=== PATIENT | female | born 1960 | race African-American/Black ===

== ENCOUNTER 2022-03-18 11:24 | Emergency (ER) | payer OTHER ==
--- NOTE | 2022-03-18 12:12 | EDPHYS ---
Physician Documentation [facility] Name: Deepali Gonzales Age: 61 yrs Sex: Female : 1960 Arrival Date: 03/18/2022 Time: 11:29 Bed 10 Private MD: ED Physician Nigel Hubbard HPI: 03/18 12:05 This 61 yrs old Black Female presents to ER via Ambulatory with complaints of Skin aj3 Sore(s). 12:05 This 61 yrs old Black Female presents to ER via Ambulatory with complaints of Skin aj3 Sore(s) and bumps. Historical: - Allergies: 11:54 Aspirin; iw - PMHx: 11:55 Hypertensive disorder; iw - Social history:: Smoking status: Patient denies any tobacco usage or history of. ROS: 12:05 Constitutional: Negative for fever, chills, and weight loss, Cardiovascular: Negative aj3 for chest pain, palpitations, and edema, Respiratory: Negative for shortness of breath, cough, wheezing, and pleuritic chest pain, Abdomen/GI: Negative for abdominal pain, nausea, vomiting, diarrhea, and constipation, Neuro: Negative for syncope, headache, weakness, numbness, tingling, and seizure. 12:05 Skin: Positive for abscess, rash. Exam: 12:05 Constitutional: This is a well developed, well nourished patient who is awake, alert, aj3 and in no acute distress. Head/Face: Normocephalic, atraumatic. Neck: Trachea midline, no thyromegaly or masses palpated, and no cervical lymphadenopathy. Supple, full range of motion without nuchal rigidity, or vertebral point tenderness. No Meningismus. Cardiovascular: Regular rate and rhythm with a normal S1 and S2. No gallops, murmurs, or rubs. Normal PMI, no JVD. No pulse deficits. Respiratory: Lungs have equal breath sounds bilaterally, clear to auscultation and percussion. No rales, rhonchi or wheezes noted. No increased work of breathing, no retractions or nasal flaring. Neuro: Awake and alert, GCS 15, oriented to person, place, time, and situation. Cranial nerves II-XII grossly intact. Motor strength 5/5 in all extremities. Sensory grossly intact. Cerebellar exam normal. Normal gait. 12:05 Skin: small indurated papular lesions to L axilla with erythema and tenderness. Small pustular lesion to lower abdomen without tenderness or induration. Dark colored dry rash under abdomen.. Vital Signs: 11:52 BP 188 / 97; Pulse 92; Resp 16; Temp 98.3; Pulse Ox 97% on R/A; iw MDM: 11:56 Patient medically screened. aj3 12:46 Data reviewed: vital signs, nurses notes. 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 ED course: No I\T\D warranted at 4 small abscess to left axilla. We will start with supportive measures and antibiotic management. Patient to follow-up with PCP and cable technician.. Administered Medications: No medications were administered Disposition: 22:00 Co-signature as Attending Physician, Nigel BUSH was immediately available on-site ms3 in the Emergency Department for consultation in the care of the patient. . Disposition Summary: 03/18/22 12:11 Discharge Ordered Location: Home aj3 Problem: new aj3 Symptoms: are unchanged aj3 Condition: Stable aj3 Diagnosis - Cutaneous abscess of left axilla aj3 - Rash and other nonspecific skin eruption aj3 Followup: aj3 - With: Private Physician - When: - Reason: Re-evaluation by your physician Followup: aj3 - With: Rajendra Amato MD - When: - Reason: Recheck today's complaints Discharge Instructions: - Discharge Summary Sheet aj3 - Skin Abscess aj3 - Heat Rash, Adult aj3 Forms: - Medication Reconciliation Form aj3 - Thank You Letter aj3 - Antibiotic Education aj3 - Prescription Opioid Use aj3 Prescriptions: - Nystatin-Triamcinolone 100,000-0.1 unit/g-% Topical Cream - apply 1 application by TOPICAL route 2 times per day; 1 tube; Refills: 0, aj3 Product Selection Permitted - cephalexin 500 mg Oral capsule - take 1 capsule by ORAL route 4 times per day; 28 capsule; Refills: 0, Product aj3 Selection Permitted - Bactrim DS 800-160 mg Oral Tablet - take 1 tablet by ORAL route every 12 hours for 7 days; 14 tablet; Refills: 0, aj3 Product Selection Permitted Signatures: Usha Hendrickson, RN RN iw Nigel Hubbard, DO ms3 Sujatha Gann RN RN ld1 Maria Bailey, POLISH COMPOUNDER POLISH COMPOUNDER aj3
--- NOTE | 2022-03-18 12:12 | ER ---
Nurse's Notes [facility] Name: Deepali Gonzales Age: 61 yrs Sex: Female : 1960 Arrival Date: 03/18/2022 Time: 11:29 Bed 10 Private MD: Diagnosis: Cutaneous abscess of left axilla;Rash and other nonspecific skin eruption Presentation: 03/18 11:52 Chief complaint: Patient states: has bumps under her left underarm, gotten worse over iw past couple days, also has some bumps under her belly and it itches and it's irritated. Coronavirus screen: At this time, the client does not indicate any symptoms associated with coronavirus-19. Ebola Screen: Patient negative for fever greater than or equal to 101.5 degrees Fahrenheit, and additional compatible Ebola Virus Disease symptoms Patient denies exposure to infectious person. Patient denies travel to an Ebola-affected area in the 21 days before illness onset. No symptoms or risks identified at this time. Initial Sepsis Screen: Does the patient meet any 2 criteria? No. Patient's initial sepsis screen is negative. Does the patient have a suspected source of infection? No. Patient's initial sepsis screen is negative. Risk Assessment: Do you want to hurt yourself or someone else? Patient reports no desire to harm self or others. Onset of symptoms. 11:52 Method Of Arrival: Ambulatory iw 11:52 Acuity: PAUL 4 iw Historical: - Allergies: 11:54 Aspirin; iw - PMHx: 11:55 Hypertensive disorder; iw - Social history:: Smoking status: Patient denies any tobacco usage or history of. Screenin:21 Abuse screen: Denies threats or abuse. Denies injuries from another. Nutritional iw screening: No deficits noted. Tuberculosis screening: No symptoms or risk factors identified. Fall Risk None identified. Assessment: 12:20 General: Appears in no apparent distress. Behavior is calm, cooperative. Pain: iw Complains of pain in left axilla. Neuro: Level of Consciousness is awake, alert, obeys commands, Oriented to person, place, time, situation, Moves all extremities. Full function. Respiratory: Respiratory effort is even, unlabored, Respiratory pattern is regular. Derm: Abscess located on suprapubic area is dime sized. Derm: Abscess located on left axilla. Musculoskeletal: Range of motion: intact in all extremities. Vital Signs: 11:52 BP 188 / 97; Pulse 92; Resp 16; Temp 98.3; Pulse Ox 97% on R/A; iw ED Course: 11:29 Patient arrived in ED. as 11:54 Maria Bailey NP is PHCP. aj3 11:54 Nigel Hubbard DO is Attending Physician. aj3 11:54 Triage completed. iw 11:55 Arm band placed on. iw 12:15 Rajendra Amato MD is Referral Physician. aj3 12:20 Usha Hendrickson, RN is Primary Nurse. iw 12:21 No provider procedures requiring assistance completed. Patient did not have IV access iw during this emergency room visit. 12:23 Patient has correct armband on for positive identification. Bed in low position. Call ld1 light in reach. Side rails up X2. Pulse ox on. NIBP on. Door closed. Noise minimized. Warm blanket given. Administered Medications: No medications were administered Medication: 12:21 VIS not applicable for this client. iw Outcome: 12:11 Discharge ordered by . aj3 12:22 Discharged to home ambulatory. ld1 12:22 Condition: stable 12:22 Discharge instructions given to patient, Instructed on discharge instructions, follow up and referral plans. medication usage, Demonstrated understanding of instructions, follow-up care, medications, Prescriptions given X 3. 12:23 Patient left the ED. ld1 Signatures: Poonam Paulino as Usha Hendrickson, RN MAKEDA iw Sujatha Gann RN RN ld1 Maria Bailey NP TERRITORY SALES MANAGER aj3
[2022-03-18 12:28] VITALS: BP 188/97; TEMP 98.3; O2SAT 97
== END 2022-03-18 12:23 | disposition home or self-care (01) ==
LOC: ER 11:24
DX: L02.412 Cutaneous abscess of left axilla (principal); R21 Rash and other nonspecific skin eruption; I10 Essential (primary) hypertension; Z88.6 Allergy status to analgesic agent
CPT/HCPCS: 99283

== ENCOUNTER 2022-05-31 23:17 | Emergency (ER) | payer OTHER ==
[2022-06-01] MEDS ORDERED: LIDOCAINE 1% W/EPI 1:100,000 MDV 50 ML VIAL ONE (00:13)
--- NOTE | 2022-06-01 00:34 | EDPHYS ---
Physician Documentation [facility] Name: Deepali Gonzales Age: 61 yrs Sex: Female : 1960 Arrival Date: 05/31/2022 Time: 23:18 Bed 13 Private MD: ED Physician Nigel Hubbard HPI: 06/01 00:34 This 61 yrs old Black Female presents to ER via Ambulatory with complaints of High ms3 Blood Pressure, Insect Bite. 00:34 The patient presents with an abscess of the right leg, The patient presents with ms3 cellulitis of the right leg. Description: erythematous, hot, warm. Onset: The symptoms/episode began/occurred acutely, 2 day(s) ago. Possible cause(s): unknown. Associated signs and symptoms: Pertinent positives: erythema, Pertinent negatives: discharge, drainage, vomiting. Modifying factors: the symptoms are alleviated by nothing, the symptoms are aggravated by nothing. Severity of symptoms: At their worst the symptoms were moderate, in the emergency department the symptoms are unchanged. Historical: - Allergies: 05/31 23:26 Aspirin; aa9 - PMHx: 23:26 Hypertensive disorder; aa9 - Immunization history:: Client reports receiving the 2nd dose of the Covid vaccine. - Social history:: Smoking status: Patient reports the use of cigarette tobacco products, smokes one-half pack cigarettes per day. ROS: 06/01 00:34 Constitutional: Negative for fever, and chills. Eyes: Negative for injury, pain, ms3 redness, and discharge, Neck: Negative for injury, pain, and swelling. Cardiovascular: Negative for chest pain, and palpitations. Respiratory: Negative for shortness of breath, cough, wheezing, and pleuritic chest pain, Abdomen/GI: Negative for abdominal pain, nausea, vomiting, diarrhea, and constipation, Neuro: Negative for headache, weakness, numbness, tingling. Skin: Positive for erythema. 00:34 All other systems are negative. ms3 Exam: 00:34 Constitutional: This is a well developed, well nourished patient who is awake, alert, ms3 and in no acute distress. Head/Face: Normocephalic, atraumatic. Neck: Trachea midline, no cervical lymphadenopathy. Supple, full range of motion without nuchal rigidity, or vertebral point tenderness. No Meningismus. Chest/axilla: Normal chest wall appearance and motion. Nontender with no deformity. Cardiovascular: Regular rate and rhythm with a normal S1 and S2. No gallops, murmurs, or rubs. Normal PMI, no JVD. No pulse deficits. Respiratory: Lungs have equal breath sounds bilaterally, clear to auscultation and percussion. No rales, rhonchi or wheezes noted. No increased work of breathing, no retractions or nasal flaring. Abdomen/GI: Soft, non-tender, with normal bowel sounds. No distension or tympany. No guarding or rebound. No evidence of tenderness throughout. 00:34 MS/ Extremity: Pulses equal, no cyanosis. Neurovascular intact. Full, normal range of motion. Psych: Awake, alert, with orientation to person, place and time. Behavior, mood, and affect are within normal limits. 00:34 Skin: abscess, that is small, of the right leg, with fluctuance, with surrounding cellulitis, cellulitis, that is mild, on the right leg, induration, that is mild is noted, located on the right leg. Vital Signs: 05/31 23:29 BP 146 / 92; Pulse 85; Resp 16 S; Temp 97.8(O); Pulse Ox 98% on R/A; aa9 06/01 00:48 BP 151 / 81; Pulse 80; Resp 18 S; Pulse Ox 99% on R/A; as6 Procedures: 00:34 I \T\ D: Incision and drainage was performed for an abscess of the right right leg ms3 Prepped with alcohol, Anesthetized with 4 ml's 1% Lidocaine w/ Epi. Incised with #11 blade. Drained small amount purulent fluid. serosanguinous fluid. Dressing: sterile 4x4 gauze, the patient tolerated the procedure well. MDM: 00:03 Patient medically screened. ms3 00:34 Differential diagnosis: abscess, cellulitis, insect bite. Data reviewed: vital signs, ms3 nurses notes, and as a result, I will discharge patient. Counseling: I had a detailed discussion with the patient and/or guardian regarding: the historical points, exam findings, and any diagnostic results supporting the discharge/admit diagnosis, the need for outpatient follow up, to return to the emergency department if symptoms worsen or persist or if there are any questions or concerns that arise at home. Special discussion: I discussed with the patient/guardian in detail that at this point there is no indication for admission to the hospital. It is understood, however, that if the symptoms persist or worsen the patient needs to return immediately for re-evaluation. 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 Exp: as6 02/22/2024. Lot #: [id number]. } Route: IM; Site: right deltoid; 00:49 Follow up: Response: (VIS) Vaccine information sheet provided today. Questions and/or as6 concerns addressed. VIS edition date: May 24, 2021.; No adverse reaction Disposition Summary: 06/01/22 00:34 Discharge Ordered Location: Home ms3 Condition: Stable ms3 Diagnosis - Cellulitis of right lower limb ms3 Followup: ms3 - With: Denis Rhodes DO - When: 2 - 3 days - Reason: Recheck today's complaints Discharge Instructions: - Discharge Summary Sheet ms3 - Cellulitis, Adult ms3 Forms: - Medication Reconciliation Form ms3 - Thank You Letter ms3 - Antibiotic Education ms3 - Prescription Opioid Use ms3 Prescriptions: - Doxycycline Hyclate 100 mg Oral Tablet - take 1 tablet by ORAL route every 12 hours; 20 tablet; Refills: 0, Product ms3 Selection Permitted Signatures: Nigel Hubbard DO DO ms3 Evangelista Jackson, RN RN as6 Arabella Ramirez RN RN aa9
--- NOTE | 2022-06-01 00:34 | ER ---
Nurse's Notes [facility] Name: Deepali Gonzales Age: 61 yrs Sex: Female : 1960 Arrival Date: 05/31/2022 Time: 23:18 Bed 13 Private MD: Diagnosis: Cellulitis of right lower limb Presentation: 05/31 23:22 Chief complaint: Patient states: spider bite on my right leg. Coronavirus screen: aa9 Vaccine status: Patient reports receiving the 2nd dose of the covid vaccine. Ebola Screen: No symptoms or risks identified at this time. Risk Assessment: Do you want to hurt yourself or someone else? Patient reports no desire to harm self or others. Onset of symptoms was May 30, 2022. 23:22 Method Of Arrival: Ambulatory aa9 23:22 Acuity: PAUL 4 aa9 23:29 Initial Sepsis Screen: Does the patient meet any 2 criteria? No. Patient's initial aa9 sepsis screen is negative. Does the patient have a suspected source of infection? No. Patient's initial sepsis screen is negative. Triage Assessment: 23:27 Bite description: bite sustained to medial aspect of right knee by a spider, animal aa9 information: Appearance: appeared sick, is superficial, vaccination(s) is not applicable. General: Appears distressed, uncomfortable, Behavior is cooperative. Pain: Complains of pain in medial aspect of right knee. Historical: - Allergies: 23:26 Aspirin; aa9 - PMHx: 23:26 Hypertensive disorder; aa9 - Immunization history:: Client reports receiving the 2nd dose of the Covid vaccine. - Social history:: Smoking status: Patient reports the use of cigarette tobacco products, smokes one-half pack cigarettes per day. Screenin/14 00:46 Abuse screen: Denies threats or abuse. Denies injuries from another. Nutritional as6 screening: No deficits noted. Tuberculosis screening: No symptoms or risk factors identified. Fall Risk None identified. Assessment: 00:48 General: see triage assessment . as6 Vital Signs: 05/31 23:29 BP 146 / 92; Pulse 85; Resp 16 S; Temp 97.8(O); Pulse Ox 98% on R/A; aa9 06/01 00:48 BP 151 / 81; Pulse 80; Resp 18 S; Pulse Ox 99% on R/A; as6 ED Course: 05/31 23:18 Patient arrived in ED. ja2 23:26 Triage completed. aa9 23:27 Arm band placed on. aa9 23:37 Nigel Hubbard DO is Attending Physician. ms3 06/01 00:03 Evangelista Jackson, RN is Primary Nurse. as6 00:34 Denis Rhodes DO is Referral Physician. ms3 00:47 Bed in low position. Call light in reach. Side rails up X 1. as6 00:47 No provider procedures requiring assistance completed. Patient did not have IV access as6 during this emergency room visit. 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 Exp: as6 02/22/2024. Lot #: [id number]. } Route: IM; Site: right deltoid; 00:49 Follow up: Response: (VIS) Vaccine information sheet provided today. Questions and/or as6 concerns addressed. VIS edition date: May 24, 2021.; No adverse reaction Medication: 00:46 Vaccine Information Statement (VIS) provided today. Questions and/or concerns as6 addressed. VIS edition date: May 24, 2021. Outcome: 00:34 Discharge ordered by . ms3 00:47 Discharged to home ambulatory, with family. as6 00:47 Condition: stable 00:47 Discharge instructions given to patient, family, Instructed on discharge instructions, follow up and referral plans. medication usage, wound care, Demonstrated understanding of instructions, follow-up care, medications, wound care, Prescriptions given X 1. 00:49 Patient left the ED. as6 Signatures: Nigel Hubbard DO DO ms3 Nadja Mitchell ahsan Evangelista Jackson, RN RN as6 Arabella Ramirez RN RN aa9
[2022-06-01] MEDS ORDERED: DOXYCYCLINE 100 MG CAP PO ONE (00:48)
[2022-06-01] MEDS ORDERED: TETANUS & DIPHTHERIA TOX,ADULT 0.5 ML VIAL ONE (00:49)
[2022-06-01 00:53] VITALS: TEMP 97.8
[2022-06-01 00:57] VITALS: BP 151/81; O2SAT 99
== END 2022-06-01 00:49 | disposition home or self-care (01) ==
LOC: ER 23:17
PROC: 0H9KXZZ Drainage of Right Lower Leg Skin, External Approach (ICD-10-PCS; principal; 2022-06-01)
DX: L03.115 Cellulitis of right lower limb (principal); I10 Essential (primary) hypertension; F17.210 Nicotine dependence, cigarettes, uncomplicated; Z23 Encounter for immunization; Z88.6 Allergy status to analgesic agent
CPT/HCPCS: 90471; 90714; 99283

== ENCOUNTER 2022-11-19 12:36 | Inpatient (IN) | payer OTHER ==
[2022-11-19] MEDS ORDERED: dexAMETHasone 10 MG/ML VIAL ONE (12:57)
[2022-11-19] MEDS ORDERED: IPRATROPIUM BROM 0.5MG/2.5ML ONE ×2 (12:58→20:03)
[2022-11-19] MEDS ORDERED: ALBUTEROL 2.5 MG/3 ML NEB SOL ONE ×3 (12:58→20:03)
--- NOTE | 2022-11-19 13:34 | RAD REPORT ---
EXAM DESCRIPTION: Cecile Pa And Lat (2 Views)11/19/2022 1:23 pm CLINICAL HISTORY: Cough COMPARISON: None FINDINGS: A few areas of subsegmental atelectasis are present within the lungs bilaterally. The upper lobes are clear. Mild cardiomegaly
[2022-11-19 14:11] LABS: SARS-COV-2 RT PCR NEGATIVE (NEGATIVE)
[2022-11-19 14:44] LABS: Absolute Lymphocytes (CBC) 2.1 K/uL (0.7-4.9); Hematocrit 43.9 % (36.0-45.0); Lymphocytes % 24.9 % (15.3-44.8); MCV 91.1 fL (80-100); MPV 9.7 fL (7.6-11.3); RBC Red Blood Cell Count 4.82 M/uL (3.86-4.86)
[2022-11-19 14:58] LABS: Magnesium 2.2 mg/dL (1.6-2.4); Potassium 3.3 mmol/L (3.5-5.1); Troponin High Sensitivity 19.4 pg/mL (<58.9)
[2022-11-19] MEDS ORDERED: MAGNESIUM SULFATE 1 gm IVPB 1 GM/100 ML BAG IV ONE (15:04)
--- NOTE | 2022-11-19 15:48 | RAD REPORT ---
EXAM DESCRIPTION: CT - Chest For Pe Angio - 11/19/2022 3:28 pm CLINICAL HISTORY: sob COMPARISON: None. TECHNIQUE: Dynamically enhanced axial 3 mm thick images of the chest were obtained during administra tion of 100 mL Isovue 370 IV contrast. Coronal and oblique reconstruction images were generated and r eviewed. Exam utilizes a protocol for optimal evaluation of pulmonary arterial tree. Maximum intensity projections 3D imaging was utilized All CT scans are performed using dose optimization technique as appropriate and may include automated exposure control or mA/KV adjustment according to patient size. FINDINGS: Poor opacification of the pulmonary arteries. Evaluation for a pulmonary embolus is nondia gnostic A thoracic aortic aneurysm is not noted. A pleural effusion is not seen. A pericardial effusion is not seen. Mild to moderate predominantly tree-in-bud opacities scattered within the left lung. A 1.6 centimeter lymph node AP window IMPRESSION: Poor opacification of the pulmonary arteries. Evaluation for a pulmonary embolus is nond iagnostic Mild to moderate predominantly tree-in-bud opacities scattered within the left lung probably an atypi nanette pneumonia 1.6 centimeter lymph node AP window. Followup CT chest with contrast in 3 months recommended to asses s stability
--- NOTE | 2022-11-19 16:05 | ER ---
Nurse's Notes [facility] Name: Deeapli Gonzales Age: 62 yrs Sex: Female : 1960 Arrival Date: 11/19/2022 Time: 12:38 Bed 14 Private MD: Diagnosis: Pneumonia, unspecified organism;Dyspnea Presentation: 11/19 12:40 Chief complaint: Patient states: Cough, wheezing, body aches, BA x 2 days. + fever at ll1 home. Coronavirus screen: Client denies travel out of the [place] in the last 14 days. congestion, cough unrelated to allergies, difficulty breathing, fatigue, fever, headache, Client presents with at least one sign or symptom that may indicate coronavirus-19. Standard/surgical mask placed on the client. Ebola Screen: Patient denies travel to an Ebola-affected area in the 21 days before illness onset. Initial Sepsis Screen: Does the patient meet any 2 criteria? No. Patient's initial sepsis screen is negative. Does the patient have a suspected source of infection? Yes: Productive cough/pneumonia. Risk Assessment: Do you want to hurt yourself or someone else? Patient reports no desire to harm self or others. Onset of symptoms was November 18, 2022. 12:40 Method Of Arrival: Ambulatory 1 12:40 Acuity: PAUL 3 ll1 Triage Assessment: 12:41 General: Appears uncomfortable, ill, Behavior is calm, cooperative, appropriate for ll1 age. Neuro: Reports weakness. Respiratory: Reports shortness of breath cough that is. Musculoskeletal: Reports pain in body aches. 14:56 General: Appears in no apparent distress. uncomfortable, obese, well groomed, well jh5 developed, Behavior is calm, cooperative, appropriate for age. Respiratory: Reports shortness of breath cough that is labored breathing. 14:57 Respiratory: Onset: The symptoms/episode began/occurred gradually, the patient has mild jh5 shortness of breath. Historical: - Allergies: 12:40 Aspirin; ll1 - PMHx: 12:40 Hypertensive disorder; ll1 - Immunization history:: Client reports receiving the 2nd dose of the Covid vaccine. - Social history:: Smoking status: Patient denies any tobacco usage or history of. Screenin:55 Abuse screen: Denies threats or abuse. Denies injuries from another. Nutritional jh5 screening: No deficits noted. Tuberculosis screening: No symptoms or risk factors identified. 14:55 [facility] ED Fall Risk Assessment (Adult) History of falling in the last 3 months, [facility] including since admission No falls in past 3 months (0 pts) Confusion or Disorientation No (0 pts) Intoxicated or Sedated No (0 pts) Impaired Gait No (0 pts) Mobility Assist Device Used No (0 pt) Altered Elimination No (0 pt) Score/Fall Risk Level 0 - 2 = Low Risk. Assessment: 14:01 Reassessment:. [facility] 14:02 Reassessment: Pt son came out letting the policy writer sales know pt was having harder time [facility] breathing again. The policy writer sales states to the visitor "Okay, let me asses her right now, we had given her a breathing treatment that seemed to help but maybe she needs another one" and the policy writer sales proceeds to get up immediately and walk into the room to see the patient. The policy writer sales then informs the pt she may need another breathing treatment and that the policy writer sales will get the provider at this time. 14:55 Pain: Denies pain. Cardiovascular: Rhythm is sinus tachycardia. Respiratory: Airway is [facility] patent Respiratory effort is even, unlabored, Breath sounds with wheezes bilaterally. 20:27 Reassessment: spoke with AMIE GREEN about BP and he advises to not give hydralazine at [facility] this time due to BP coming down. Vital Signs: 12:40 BP 189 / 107; Pulse 94; Resp 20; Temp 98.9; Pulse Ox 95% ; Weight 127.01 kg; Height 5 ll1 ft. 6 in. (167.64 cm); Pain 8/10; 13:26 BP 156 / 70; Pulse 92; Resp 22; Pulse Ox 94% ; jh5 14:46 Pulse 103; Resp 22; Pulse Ox 98% on R/A; 5 16:04 BP 174 / 77; Pulse 102; Resp 20; Pulse Ox 98% ; jh5 19:42 BP 190 / 96; Pulse 94; Resp 22; Pulse Ox 95% on R/A; jh5 20:23 BP 162 / 74; Pulse 98; Resp 22; Pulse Ox 96% ; jh5 12:40 Body Mass Index 45.19 (127.01 kg, 167.64 cm) ll1 ED Course: 12:38 Patient arrived in ED. rg4 12:39 Lu[facility] Ren[facility]C [facility] kb 12:39 Sergey Gold MD is Attending Physician. kb 12:43 Triage completed. ll1 12:43 Arm band placed on Patient placed in an exam room, on a stretcher. ll1 13:25 Chest Pa And Lat (2 Views) XRAY In Process Unspecified. EDMS 13:26 COVID-19/FLU A+B/RSV Sent. jh5 14:55 Patient has correct armband on for positive identification. Bed in low position. Call [facility] light in reach. Side rails up X 1. 14:55 No provider procedures requiring assistance completed. jh5 15:30 CT Chest For PE Angio In Process Unspecified. EDMS 16:05 Rajendra Rios MD is Hospitalizing Provider. kb Administered Medications: 13:00 Drug: Albuterol 2.5 mg Route: Inhalation; 5 13:00 Drug: AtroVENT (ipratropium) Aerosol 0.5 mg Route: Inhalation; 5 13:00 Drug: Decadron (dexamethasone) 10 mg Route: IM; Site: right deltoid; jh5 14:08 Drug: Albuterol 2.5 mg Route: Inhalation; jh5 15:06 Drug: Magnesium Sulfate 1 grams Route: IVPB; Infused Over: 1 hrs; Site: right [facility] antecubital; 17:00 Drug: Rocephin (cefTRIAXone) 1 grams Route: IV; Rate: calculated rate; Site: right [facility] antecubital; 17:04 Follow up: IV Status: Completed infusion [facility] 17:09 Drug: Zithromax (azithromycin) 500 mg Route: IVPB; Infused Over: 1 hrs; Site: right [facility] antecubital; 18:48 Follow up: IV Status: Completed infusion 5 20:29 Not Given (Physician Discretion): hydrALAZINE 10 mg IVP once [facility] Medication: 14:55 VIS not applicable for this client. 5 Outcome: 16:05 Decision to Hospitalize by Provider. kb 20:46 Patient left the ED. 5 Signatures: Dispatcher [employer] EDMS Luz Reno FNP-C SHANK THREADER-Evelyn Finnegan rg4 Arlene Maynard RN RN 1 Nadja Romo RN RN 5 Corrections: (The following items were deleted from the chart) 12:44 12:40 Pulse 94bpm; Resp 20bpm; Pulse Ox 95%; Temp 98.9F; 127.01 kg; Height 5 ft. 6 in.; ll1 BMI: 45.1; Pain 8/10; ll1
--- NOTE | 2022-11-19 16:05 | EDPHYS ---
Physician Documentation [facility] Name: Deepali Gonzales Age: 62 yrs Sex: Female : 1960 Arrival Date: 11/19/2022 Time: 12:38 Bed 14 Private MD: ED Physician Sergey Gold HPI: 11/19 12:45 This 62 yrs old Black Female presents to ER via Ambulatory with complaints of Breathing kb Difficulty, Body Aches. 12:45 Patient is 62-year-old female with a history of hypertension that presents for cough, kb congestion, wheezing, fever, body aches, headache that started 2 days ago. States nothing has made the symptoms better or worse. Has tried albuterol inhaler without relief.. Historical: - Allergies: 12:40 Aspirin; ll1 - PMHx: 12:40 Hypertensive disorder; ll1 - Immunization history:: Client reports receiving the 2nd dose of the Covid vaccine. - Social history:: Smoking status: Patient denies any tobacco usage or history of. ROS: 12:45 Abdomen/GI: Negative for abdominal pain, nausea, vomiting, diarrhea, and constipation. kb 12:45 Constitutional: Positive for body aches, chills, fatigue, fever, malaise. 12:45 ENT: Positive for rhinorrhea, sinus congestion. 12:45 Respiratory: Positive for cough. 12:45 Neuro: Positive for headache. 12:45 All other systems are negative. Exam: 12:45 Constitutional: This is a well developed, well nourished patient who is awake, alert, kb and in no acute distress. Head/Face: Normocephalic, atraumatic. ENT: Moist Mucous membranes Cardiovascular: Regular rate and rhythm with a normal S1 and S2. No gallops, murmurs, or rubs. No pulse deficits. Abdomen/GI: Soft, non-tender. No distention Skin: Warm, dry with normal turgor. Normal color. MS/ Extremity: Pulses equal, no cyanosis. Neurovascular intact. Full, normal range of motion. Neuro: Awake and alert, GCS 15, oriented to person, place, time, and situation. Moves all extremities. Normal gait. Psych: Awake, alert, with orientation to person, place and time. Behavior, mood, and affect are within normal limits. 12:45 Respiratory: the patient does not display signs of respiratory distress, Respirations: normal, Breath sounds: wheezing: expiratory that is moderate, is heard diffusely. 15:00 ECG was reviewed by the Attending Physician. Vital Signs: 12:40 BP 189 / 107; Pulse 94; Resp 20; Temp 98.9; Pulse Ox 95% ; Weight 127.01 kg; Height 5 ll1 ft. 6 in. (167.64 cm); Pain 8/10; 13:26 BP 156 / 70; Pulse 92; Resp 22; Pulse Ox 94% ; jh5 14:46 Pulse 103; Resp 22; Pulse Ox 98% on R/A; jh5 16:04 BP 174 / 77; Pulse 102; Resp 20; Pulse Ox 98% ; jh5 19:42 BP 190 / 96; Pulse 94; Resp 22; Pulse Ox 95% on R/A; jh5 20:23 BP 162 / 74; Pulse 98; Resp 22; Pulse Ox 96% ; jh5 12:40 Body Mass Index 45.19 (127.01 kg, 167.64 cm) ll1 MDM: 12:39 Patient medically screened. kb 12:46 Differential diagnosis: Bronchitis pneumonia, COVID, flu, RSV, URI. Data reviewed: vital signs, nurses notes. ED course: Patient is a 62-year-old female with no history of asthma, COPD or other respiratory diseases. Physical exam findings include wheezing bilaterally. Differential diagnosis includes pneumonia, bronchitis, flu, COVID, RSV. Will obtain chest x-ray and test for COVID, flu and RSV. Will give neb treatment and steroid injection and reevaluate.. 16:01 The patient's pulmonary embolism risk score was calculated as follows: the patients kb heart rate is greater than 100 beats per minute (1.5 Pts). Consideration of Admission/Observation Patient was admitted/placed on observation. Management of patient was discussed with the following: Hospitalist: Abhinav accepts pt for admission under Dr Rios. Counseling: I had a detailed discussion with the patient and/or guardian regarding: the historical points, exam findings, and any diagnostic results supporting the discharge/admit diagnosis, lab results, radiology results, the need for further work-up and treatment in the hospital. ED course: . ED course: Wheezing improved after initial treatment but returned returned shortly after. Second treatment given in magnesium IV ordered. Wheezing again decreased but still present. CT was nondiagnostic for PE but shows atypical pneumonia. Will admit for pneumonia and dyspnea. . 11/19 12:44 Order name: COVID-19/FLU A+B/RSV; Complete Time: 14:12 kb 11/19 14:04 Order name: Basic Metabolic Panel; Complete Time: 14:59 kb 11/19 14:04 Order name: CBC with Diff; Complete Time: 14:49 kb 11/19 14:04 Order name: D-Dimer; Complete Time: 14:50 kb 11/19 14:04 Order name: Magnesium; Complete Time: 14:59 kb 11/19 14:04 Order name: NT PRO-BNP; Complete Time: 14:59 kb 11/19 14:04 Order name: Troponin HS; Complete Time: 14:59 kb 11/19 15:58 Order name: Blood Culture Adult (2) kb 11/19 15:58 Order name: Lactate w/ 2H reflex if indic. kb 11/19 18:01 Order name: Hemoglobin A1c EDMS 11/19 18:01 Order name: Lipid Profile EDMS 11/19 18:57 Order name: Protime (+INR) EDMS 11/19 19:10 Order name: Phosphorus EDMS 11/19 19:10 Order name: Creatine Phosphokinase EDMS 11/19 12:44 Order name: Chest Pa And Lat (2 Views) XRAY; Complete Time: 13:37 kb 11/19 14:04 Order name: EKG; Complete Time: 14:05 kb 11/19 14:04 Order name: Cardiac monitoring; Complete Time: 14:26 kb 11/19 14:59 Order name: CT Chest For PE Angio; Complete Time: 15:51 kb 11/19 18:01 Order name: Echo with Doppler EDMS 11/19 19:10 Order name: T4 Free EDMS 11/19 19:10 Order name: Magnesium EDMS 11/19 19:10 Order name: Thyroid Stimulating Hormone EDMS 11/19 14:04 Order name: EKG - Nurse/Tech; Complete Time: 14:59 kb 11/19 14:04 Order name: IV Saline Lock; Complete Time: 14:26 kb 11/19 14:04 Order name: Labs collected and sent; Complete Time: 14:26 kb 11/19 14:04 Order name: O2 Per Protocol; Complete Time: 14:26 kb 11/19 14:04 Order name: O2 Sat Monitoring; Complete Time: 14:26 kb 11/19 16:42 Order name: Labs - recollect needed: recollect lactate, send on ice; Complete Time: 16:55 EC:00 Rate is 102 beats/min. Rhythm is regular. QRS [place] is Normal. SC interval is normal at kb 160 msec. QRS interval is normal at 88 msec. QT interval is normal at 479 msec. Administered Medications: 13:00 Drug: Albuterol 2.5 mg Route: Inhalation; [facility] 13:00 Drug: AtroVENT (ipratropium) Aerosol 0.5 mg Route: Inhalation; [facility] 13:00 Drug: Decadron (dexamethasone) 10 mg Route: IM; Site: right deltoid; [facility] 14:08 Drug: Albuterol 2.5 mg Route: Inhalation; [facility] 15:06 Drug: Magnesium Sulfate 1 grams Route: IVPB; Infused Over: 1 hrs; Site: right [facility] antecubital; 17:00 Drug: Rocephin (cefTRIAXone) 1 grams Route: IV; Rate: calculated rate; Site: right [facility] antecubital; 17:04 Follow up: IV Status: Completed infusion [facility] 17:09 Drug: Zithromax (azithromycin) 500 mg Route: IVPB; Infused Over: 1 hrs; Site: right [facility] antecubital; 18:48 Follow up: IV Status: Completed infusion [facility] 20:29 Not Given (Physician Discretion): hydrALAZINE 10 mg IVP once [facility] Disposition Summary: 11/19/22 16:05 Hospitalization Ordered Hospitalization Status: Observation kb Provider: Rajendra Rios Location: Telemetry/MedSurg (observation) kb Condition: Stable kb Problem: new kb Symptoms: are unchanged kb Bed/Room Type: Standard Room Assignment: 430(11/19/22 18:44) bd Diagnosis - Pneumonia, unspecified organism kb - Dyspnea kb Forms: - Medication Reconciliation Form kb - SBAR form kb Signatures: Dispatcher [employer] EDLuz Thorpe FNP-C FNP-Shefali Washington Lee, FNP-C FNP-Arlene Bear RN RN 1 Nadja Romo RN RN 5 Corrections: (The following items were deleted from the chart) 18:44 16:05 kb bd
[2022-11-19] MEDS ORDERED: CEFTRIAXONE 1000 MG/VIAL ONE (16:12)
[2022-11-19] MEDS ORDERED: NA CHLORIDE 0.9% 250 ML ONE (16:13)
[2022-11-19] MEDS ORDERED: AZITHROMYCIN 500 MG INJ IVPB ONE (16:13)
[2022-11-19] MEDS ORDERED: ACETAMINOPHEN 325 MG TABLET PO PRN (17:57)
[2022-11-19] MEDS ORDERED: ONDANSETRON 4 MG/2 ML VIAL IV PRN (18:02)
--- NOTE | 2022-11-19 18:07 | P.HP ---
Certification for Inpatient Patient admitted to: Inpatient With expected LOS: >2 Midnights Patient will require the following post-hospital care: None Practitioner: I am a practitioner with admitting privileges, knowledge of patient current condition, hospital course, and medical plan of care. Services: Services provided to patient in accordance with Admission requirements found in Title 42 Section 412.3 of the Code of Federal Regulations <Yajaira Hernandez - Last Filed: 11/19/22 19:37> Patient History Date of Service: 11/19/22 Reason for admission: Pneumonia History of Present Illness: Patient is a 62-year-old female with a past medical history significant for hypertension, morbid obesity, nicotine dependence who presents with complaint of wheezing, cough and shortness of breath has been ongoing for the past 3 days. Patient reported associated signs and symptoms of sore throat, generalized body pains, fever, chills, weakness, fatigue, headache, poor appetite and chest tightness. Patient denies any other signs and symptoms. Symptoms are aggravated or relieved by nothing. Patient decided to present to the hospital due to worsening symptoms. - Past Medical/Surgical History -: Hypertension -: Morbid obesity Past Surgical History: Reviewed- Non-Contributory - Family History Family History: Reviewed- Non-Contributory - Social History Smoking Status: Current every day smoker Counseled patient to stop smoking for: less than 10 minutes Smoking therapy provided: Yes Alcohol use: No CD- Drugs: No Caffeine use: Yes Place of Residence: Home <Yajaira Hernandez - Last Filed: 11/19/22 19:37> Date of Service: 11/20/22 <Rajendra Rios - Last Filed: 11/20/22 20:27> Allergies aspirin Allergy (Mild, Verified 11/19/22 19:30) Itching Review of Systems General: Fever, Chills, Weakness, Other (Generalized body pains, fatigue, poor appetite) Eyes: Unremarkable ENT: Throat Pain Respiratory: Cough, Shortness of Breath, Other (Chest tightness.) Cardiovascular: Unremarkable Gastrointestinal: Unremarkable Genitourinary: Unremarkable Musculoskeletal: Unremarkable Neurological: Weakness, Other (Headache) Lymphatics: Unremarkable <Yajaira Hernandez - Last Filed: 11/19/22 19:37> Physical Examination - Physical Exam General: Alert, In no apparent distress, Oriented x3, Cooperative HEENT: Atraumatic, PERRLA, Mucous membr. moist/pink, EOMI, Sclerae nonicteric Neck: Supple, 2+ carotid pulse no bruit, No LAD, Without JVD or thyroid abnormality Respiratory: Diminished Cardiovascular: Regular rate/rhythm, Normal S1 S2 Capillary refill: <2 Seconds Gastrointestinal: Normal bowel sounds, Soft and benign, Non-distended, No tenderness Musculoskeletal: No clubbing, No swelling, No erythema, No tenderness Integumentary: No rashes, No breakdown, No significant lesion, No tenderness/swelling, No erythema Neurological: Normal speech, Normal tone, Normal affect Lymphatics: No axilla or inguinal lymphadenopathy - Studies Laboratory Data (last 24 hrs) 11/19/22 14:25: WBC 8.60, Hgb 14.4, Hct 43.9, Plt Count 185 11/19/22 14:25: Sodium 139, Potassium 3.3 L, BUN 10, Creatinine 1.00, Glucose 112 H, Magnesium 2.2 <Yajaira Hernandez - Last Filed: 11/19/22 19:37> Assessment and Plan - Plan --Pneumonia. Noted on imaging. Blood cultures pending. Patient placed on antibiotics, neb treatment albuterol\\Atrovent. Continue O2 therapy as needed. --Cough. Patient is COVID\\RSV\\influenza A/B negative. Patient placed on antitussives. --Class III obesity. Likely secondary to excess calories intake. Patient counseled on weight reduction, diet and excise therapy. --Hypokalemia. Replete as needed. --Headache. Tylenol as needed. -- CKD 2. Baseline functions unknown. We will continue to monitor renal functions. --Elevated BNP--661 echocardiogram pending to rule out CHF. --Elevated D-dimer. CTA PE protocol indicates "nondiagnostic" for PE. Continue Lovenox subQ --Hypertension. Poorly controlled. We will manage BP with labetalol as needed. --DVT prophylaxis with Lovenox subQ - Advance Directives Does patient have a Living Will: No Does patient have a Durable POA for Healthcare: No - Code Status/Comfort Care Code Status Assessed: Yes Physician Review: Patient Assessed, Agree with Above Assessment and Plan Critical Care: No <Yajaira Hernandez - Last Filed: 11/19/22 19:37> Physician Review: Patient Assessed, Agree with Above Assessment and Plan <Rajendra Rios - Last Filed: 11/20/22 20:27>
[2022-11-19 18:57] LABS: Protime INR 1.11
[2022-11-19 19:09] LABS: Magnesium 2.4 mg/dL (1.6-2.4); Phosphorus 2.9 mg/dL (2.5-4.9); Thyroid Stimulating Hormone 0.61 uIU/mL (0.358-3.740)
[2022-11-19] MEDS ORDERED: POTASSIUM CL SA 10 MEQ TAB PO ONE (19:23)
[2022-11-19] MEDS ORDERED: ALBUTEROL 2.5 MG/3 ML NEB SOL NEB SCH (20:00)
[2022-11-19] MEDS: ALBUTEROL 2.5 MG/3 ML NEB SOL NEB SCH (20:00)
[2022-11-19] MEDS: IPRATROPIUM BROM 0.5MG/2.5ML NEB SCH (20:00)
[2022-11-19] MEDS ORDERED: HYDRALAZINE HCL 20 MG/ML VIAL ONE (20:26)
[2022-11-19] MEDS: ENOXAPARIN 40 MG/0.4 ML SQ SCH (21:46)
[2022-11-20] MEDS: LABETALOL 20 MG/4ML SYRINGE IV PRN (00:31)
[2022-11-20] MEDS: ALBUTEROL 2.5 MG/3 ML NEB SOL NEB SCH ×4 (01:40→19:20)
[2022-11-20] MEDS: IPRATROPIUM BROM 0.5MG/2.5ML NEB SCH ×4 (01:40→19:20)
[2022-11-20 03:45] LABS: Absolute Lymphocytes (CBC) 1.7 K/uL (0.7-4.9); Hematocrit 43.1 % (36.0-45.0); Lymphocytes % 32.3 % (15.3-44.8); MCV 90.5 fL (80-100); RBC Red Blood Cell Count 4.76 M/uL (3.86-4.86)
[2022-11-20 03:53] LABS: Potassium 3.6 mmol/L (3.5-5.1)
[2022-11-20] MEDS: GUAIFENESIN/CODEINE 5ML UCUP PO PRN ×2 (08:50→17:06)
[2022-11-20] MEDS: ENOXAPARIN 40 MG/0.4 ML SQ SCH (08:51)
[2022-11-20] MEDS: CEFTRIAXONE 1,000 MG in NA CHLORIDE 0.9% 50 ML IVPB SCH (08:53)
[2022-11-20] MEDS: ASPIRIN 81 MG CHEWABLE TABLET PO SCH (08:58)
[2022-11-20] MEDS: NICOTINE 21 MG/PAT TD SCH (08:58)
[2022-11-20] MEDS ORDERED: AZITHROMYCIN IV 500 MG in NA CHLORIDE 0.9% 250 ML IVPB ONE (09:00)
[2022-11-20] MEDS ORDERED: POTASSIUM CL SA 10 MEQ TAB PO ONE (09:00)
[2022-11-20] MEDS ORDERED: GUAIFENESIN/DM 5 ML UCUP PO PRN (11:36)
[2022-11-20] MEDS: FLUTICASONE 50MCG NASAL SPRAY NAS SCH (12:57)
--- NOTE | 2022-11-20 20:32 | P.PN ---
Subjective Date of Service: 11/20/22 Chief Complaint: Pneumonia No acute events overnight. She reports that her breathing and cough are gradually improving. She denies any chest pain or palpitations. Review of Systems 10-point ROS is otherwise unremarkable Respiratory: Cough, Shortness of Breath, Wheezing Physical Examination - Vital Signs Temperature: 97.8 F Blood Pressure: 134/66 Pulse: 82 Respirations: 18 Pulse Ox (%): 95 - Physical Exam General: Alert, In no apparent distress, Oriented x3 HEENT: Atraumatic, EOMI, Sclerae nonicteric Neck: JVD not distended Respiratory: Diminished, Rhonchi/gurgles Cardiovascular: No edema, Regular rate/rhythm, No gallops, No rubs, No murmurs Gastrointestinal: Normal bowel sounds, Soft and benign, Non-distended, No tenderness, No rebound, No guarding Musculoskeletal: No clubbing Integumentary: No rashes Neurological: Normal speech, Normal affect Assessment And Plan - Plan # Severe Sepsis likely secondary to Community-Acquired Pneumonia - POA She met criteria criteria based on HR > 90 bpm and RR > 20 breaths/min, and the suspected source is pneumonia. - Sepsis order set was initiated - Lactate trend: 2.3 -> 1.5 - Blood cultures drawn before antibiotics were given - Broad spectrum antibiotics started: Ceftriaxone + Azithromycin - In regards to fluids: - 30 mL/kg of IV fluids was not administered given SBP > 90, MAP > 65, lactic acid < 4 - Chest x-ray = "a few areas of subsegmental atelectasis are present within the lungs bilaterally. The upper lobes are clear. Mild cardiomegaly." # Elevated D-Dimer - D-Dimer = 1123 - CT chest angiogram = "poor opacification of the pulmonary arteries. Evaluation for a pulmonary embolus is nondiagnostic. Mild to moderate predominantly tree-in-bud opacities scattered within the left lung probably an atypical pneumonia. 1.6 centimeter lymph node AP window. Followup CT chest with contrast in 3 months recommended to assess stability" - Ordered bilateral lower extremity Doppler + V/Q scan # Enlarged Lymph Node (1.6 cm) # Tobacco Use Disorder - Pulmonary Medicine consulted - recommendations appreciated - Discussed the enlarged lymph node with her and explained my concern for a possible malignancy - Advised that she schedule a close follow-up with her PCP and Pulmonology for serial imaging and close evaluation - She verbalized understanding - Tobacco cessation counseling provided - Nicotine patch ordered # Hypertension - Hold home medications due to concern for sepsis # Morbid Obesity - BMI 43.5 kg/m2 - Lifestyle modifications Rajendra Rios M.D.
--- NOTE | 2022-11-20 21:48 | RAD REPORT ---
EXAM DESCRIPTION: US - Extrem Venous W Compress Alfred - 11/20/2022 9:29 pm CLINICAL HISTORY: elevated ddimer Bilateral leg edema and swelling. COMPARISON: No comparisons TECHNIQUE: Real-time sonographic interrogation of the left and right lower extremity deep venous sys tems was performed. FINDINGS: Normal compressibility, flow augmentation, phasic flow and spontaneous flow is identified in both the left and right lower extremity deep venous systems. IMPRESSION: No sonographic evidence of left or right lower extremity deep venous thrombosis.
[2022-11-21] MEDS: LABETALOL 20 MG/4ML SYRINGE IV PRN ×2 (00:02→11:37)
[2022-11-21] MEDS: IPRATROPIUM BROM 0.5MG/2.5ML NEB SCH ×4 (01:15→20:00)
[2022-11-21] MEDS: ALBUTEROL 2.5 MG/3 ML NEB SOL NEB SCH ×4 (01:15→20:00)
[2022-11-21] MEDS: GUAIFENESIN/CODEINE 5ML UCUP PO PRN ×3 (02:40→21:42)
--- NOTE | 2022-11-21 06:55 | ECHO ---
HEIGHT: 5 ft 6.5 in WEIGHT: 273 lb 8 oz DATE OF STUDY: 11/20/[address]: Yajaira Hernandez 2-DIMENSIONAL: YES M.MODE: YES DOPPLER: YES COLOR FLOW: YES TDS: PORTABLE: YES DEFINITY: BUBBLE STUDY: DIAGNOSIS: ELEVATED TROPONIN CARDIAC HISTORY: CATHERIZATION: SURGERY: PROSTHETIC VALVE: PACEMAKER: MEASUREMENTS (cm) DIASTOLIC (NORMALS) SYSTOLIC (NORMALS) IVSd 1.0 (0.6-1.2) LA Diam 3.6 (1.9-4.0) LVEF 70% LVIDd 4.5 (3.5-5.7) LVIDs 2.7 (2.0-3.5) %FS 40% LVPWd 1.1 (0.6-1.2) Ao Diam 3.0 (2.0-3.7) 2 DIMENSIONAL ASSESSMENT: RIGHT ATRIUM: NORMAL LEFT ATRIUM: NORMAL RIGHT VENTRICLE: NORMAL LEFT VENTRICLE: NORMAL TRICUSPID VALVE: MILD TRICUSPID REGURGITATION MITRAL VALVE: NORMAL PULMONIC VALVE: NORMAL AORTIC VALVE: NORMAL PERICARDIAL EFFUSION: NONE AORTIC ROOT: NORMAL LEFT VENTRICULAR WALL MOTION: NORMAL DOPPLER/COLOR FLOW: MILD TRICUSPID REGURGITATION COMMENTS: 1. NORMAL LEFT VENTRICULAR EJECTION FRACTION 55-60% WITH NORMAL WALL MOTION 2. NORMAL WALL MOTION 3. MILD TRICUSPID REGURGITATION 4. CALCIFIED AORTIC VALVE, NO AORTIC STENOSIS TECHNOLOGIST: CONRAD CORRIGAN
[2022-11-21] MEDS: CEFTRIAXONE 1,000 MG in NA CHLORIDE 0.9% 50 ML IVPB SCH (08:12)
[2022-11-21] MEDS: NICOTINE 21 MG/PAT TD SCH (08:12)
[2022-11-21] MEDS: ASPIRIN 81 MG CHEWABLE TABLET PO SCH (08:12)
[2022-11-21] MEDS: ENOXAPARIN 40 MG/0.4 ML SQ SCH (08:13)
[2022-11-21] MEDS: FLUTICASONE 50MCG NASAL SPRAY NAS SCH (08:14)
--- NOTE | 2022-11-21 10:52 | RAD REPORT ---
EXAM DESCRIPTION: NM - Vent Perfusion VQ Scan - 11/21/2022 10:06 am CLINICAL HISTORY: elevated ddimer Chest pain shortness of breath COMPARISON: Chest For Pe Angio dated 11/19/2022 TECHNIQUE: 21.8mCi Xe-133 gas inhaled and 6.8mCi Tc-MAA IV. Planar ventilation scan was performed in posterior projection after Xe-133 gas inhalation (wash-in, e quilibrium, and wash-out phases) followed by perfusion scan with Tc-MAA IV in multiple projections. Examination is correlated with recent chest radiograph. FINDINGS: Normal ventilation with appropriate wash-out and mild significant air-trapping. No mismatched segmental perfusion defect. IMPRESSION: Low probability of acute pulmonary embolism.
--- NOTE | 2022-11-21 12:41 | P.CNS ---
Date of Consult: 11/21/22 Reason for Consult: Respiratory distress Chief Complaint: Pneumonia History of Present Illness: Kidney 62 years of age has been sick for the past 2 days complaining of wheezing generalized body ache hurting coughing patient is an ex-smoker former heavy smoker you have sleep apnea. To the hospital with some patchy infiltrates having shortness of breath and wheezing Allergies aspirin Allergy (Mild, Verified 11/19/22 19:30) Itching Home Medications: Atorvastatin Calcium 1 tab PO DAILY 11/19/22 Carvedilol [Coreg] 1 tab PO BID 11/19/22 Cholecalciferol (Vitamin D3) [Vitamin D3] 1 tab PO DAILY 11/19/22 Clopidogrel Bisulfate [Plavix*] 1 tab PO DAILY 11/19/22 Isosorbide Mononitrate [Isosorbide Mononitrate ER] 60 mg PO DAILY 11/19/22 NIFEdipine [Nifedipine ER] 30 mg PO DAILY 11/19/22 Nitroglycerin 0.4 mg SL PRN PRN 11/19/22 Spironolactone 25 mg PO DAILY 11/19/22 Terazosin HCl 1 cap PO BEDTIME 11/19/22 Thiamine HCl 100 mg PO DAILY 11/19/22 cloNIDine HCL [Clonidine HCl] 0.1 mg PO DAILY 11/19/22 lisinopriL [Prinivil] 2 tab PO DAILY 11/19/22 - Past Medical/Surgical History Diabetic: No -: Hypertension -: Morbid obesity - Social History Smoking Status: Current every day smoker Alcohol use: No CD- Drugs: No Caffeine use: Yes Place of Residence: Home Physical Examination Temp Pulse Resp BP Pulse Ox 97.2 F 71 18 187/81 H 98 11/21/22 08:00 11/21/22 11:37 11/21/22 08:00 11/21/22 11:37 11/21/22 08:00 - Problems (1) Pneumonia Current Visit: Yes Status: Acute Plan: Patient is 62 years of age admitted with acute onset of worsening shortness of breath cough congestion has not fever at home body aches that he may have a viral infection some patchy infiltrates in the left lung I recommend continue with Rocephin and p.o. Zithromax as an steroids as she was a heavy smoker before history of sleep apnea CPAP is set at 10 cm patient's blood pressure is elevated she is noncompliant with CPAP at home Labs chemistries reviewed white count is normal Home medications have been resumed may have underlying diastolic dysfunction in addition to COPD stable discharge tomorrow on Zithromax plus low-dose prednisone 10 mg twice a day in addition to an Advair or Symbicort inhaler Qualifiers: Aspiration pneumonia type: unspecified Laterality: left
[2022-11-21] MEDS ORDERED: FUROSEMIDE 20 MG/ 2ML VIAL IV ONE (12:52)
[2022-11-21] MEDS: lisinopriL 20 MG TAB PO SCH (13:00)
[2022-11-21] MEDS: cloNIDine HCL 0.1 MG TAB PO SCH (13:00)
[2022-11-21] MEDS: ISOSORBIDE MONO SR 60 MG TAB PO SCH (13:00)
[2022-11-21] MEDS: NIFEDIPINE XL 30 MG TABLET PO SCH (13:00)
[2022-11-21] MEDS: SPIRONOLACTONE 25 MG TABLET PO SCH (13:20)
[2022-11-21] MEDS: METHYLPREDNISOLONE 40 MG INJ IV SCH ×2 (13:20→21:30)
--- NOTE | 2022-11-21 13:31 | P.PN ---
Subjective Date of Service: 11/21/22 Chief Complaint: Pneumonia No acute events overnight. She reports that her breathing and cough are slightly worse this morning. She is wheezing on exam. She denies any chest pain or palpitations. Review of Systems 10-point ROS is otherwise unremarkable Respiratory: Cough, Shortness of Breath, Wheezing Physical Examination - Vital Signs Temperature: 97.7 F Blood Pressure: 141/65 Pulse: 77 Respirations: 18 Pulse Ox (%): 97 Assessment And Plan - Plan - Physical Exam General: Alert, In no apparent distress, Oriented x3 HEENT: Atraumatic, EOMI, Sclerae nonicteric Neck: JVD not distended Respiratory: Diminished, Rhonchi/gurgles, End-expiratory wheezes throughout Cardiovascular: No edema, Regular rate/rhythm, No gallops, No rubs, No murmurs Gastrointestinal: Normal bowel sounds, Soft, Non-distended, No tenderness Musculoskeletal: No clubbing Integumentary: No rashes Neurological: Normal speech, Normal affect # Severe Sepsis likely secondary to Community-Acquired Pneumonia - POA She met criteria criteria based on HR > 90 bpm and RR > 20 breaths/min, and the suspected source is pneumonia. - Sepsis order set was initiated - Lactate trend: 2.3 -> 1.5 - Blood cultures drawn before antibiotics were given - Broad spectrum antibiotics started: Ceftriaxone + Azithromycin - In regards to fluids: - 30 mL/kg of IV fluids was not administered given SBP > 90, MAP > 65, lactic acid < 4 - Chest x-ray = "a few areas of subsegmental atelectasis are present within the lungs bilaterally. The upper lobes are clear. Mild cardiomegaly." # Suspect Acute Chronic Obstructive Pulmonary Disease Exacerbation - Pulmonary Medicine consulted and spoke with Dr. Orta - recommendations appreciated - Bronchodilators and steroids per Pulm - Consulted Respiratory Therapy - Supplemental oxygen to maintain SpO2 > 92% - Assess inhaler technique one improved from COPD exacerbation # Elevated D-Dimer - D-Dimer = 1123 - CT chest angiogram = "poor opacification of the pulmonary arteries. Evaluation for a pulmonary embolus is nondiagnostic. Mild to moderate predominantly tree-in-bud opacities scattered within the left lung probably an atypical pneumonia. 1.6 centimeter lymph node AP window. Followup CT chest with contrast in 3 months recommended to assess stability" - Ordered bilateral lower extremity Doppler = "no sonographic evidence of left or right lower extremity deep venous thrombosis." - V/Q scan = pending # Enlarged Lymph Node (1.6 cm) # Tobacco Use Disorder - Pulmonary Medicine consulted - recommendations appreciated - Discussed the enlarged lymph node with her and explained my concern for a possible malignancy - Advised that she schedule a close follow-up with her PCP and Pulmonology for serial imaging and close evaluation - She verbalized understanding - Tobacco cessation counseling provided - Nicotine patch ordered # Hypertension - Hold home medications due to concern for sepsis # Morbid Obesity - BMI 43.5 kg/m2 - Lifestyle modifications Rajendra Rios M.D.
[2022-11-21] MEDS: ARFORMOTEROL TARTRATE 15 MCG/2 ML VIAL.NEB NEB SCH ×2 (13:56→20:00)
[2022-11-21] MEDS: TERAZOSIN HCL 1 MG CAP PO SCH (21:29)
[2022-11-21] MEDS: ATORVASTATIN 40 MG TAB PO SCH (21:29)
[2022-11-21] MEDS: carvediloL 25 MG TAB PO SCH (21:29)
[2022-11-22] MEDS: ALBUTEROL 2.5 MG/3 ML NEB SOL NEB SCH ×4 (01:08→19:30)
[2022-11-22] MEDS: IPRATROPIUM BROM 0.5MG/2.5ML NEB SCH ×4 (01:08→19:30)
[2022-11-22] MEDS: LABETALOL 20 MG/4ML SYRINGE IV PRN (01:37)
[2022-11-22] MEDS: ASPIRIN 81 MG CHEWABLE TABLET PO SCH (07:47)
[2022-11-22] MEDS: NICOTINE 21 MG/PAT TD SCH (08:29)
[2022-11-22] MEDS: ARFORMOTEROL TARTRATE 15 MCG/2 ML VIAL.NEB NEB SCH ×2 (08:46→19:30)
--- NOTE | 2022-11-22 08:58 | RAD REPORT ---
EXAM DESCRIPTION: Cecile Beaulieu And Krystin (2 Views)11/22/2022 8:39 am CLINICAL HISTORY: Cough COMPARISON: November 19, 2022 FINDINGS: Bilateral interstitial lung opacities without significant change Heart is normal size IMPRESSION: No significant change mild bilateral interstitial lung opacities previously shown to pro bably indicate an atypical infection
[2022-11-22] MEDS ORDERED: NIFEDIPINE XL 30 MG TABLET PO SCH (09:00)
[2022-11-22] MEDS ORDERED: lisinopriL 20 MG TAB PO SCH (09:00)
[2022-11-22] MEDS: FLUTICASONE 50MCG NASAL SPRAY NAS SCH (09:00)
[2022-11-22] MEDS ORDERED: AZITHROMYCIN 250 MG TAB PO SCH (09:00)
[2022-11-22] MEDS ORDERED: cloNIDine HCL 0.1 MG TAB PO SCH (09:00)
[2022-11-22] MEDS ORDERED: ISOSORBIDE MONO SR 60 MG TAB PO SCH (09:00)
[2022-11-22] MEDS: ISOSORBIDE MONO SR 60 MG TAB PO SCH (09:00)
[2022-11-22] MEDS ORDERED: SPIRONOLACTONE 25 MG TABLET PO SCH (09:00)
[2022-11-22] MEDS: ENOXAPARIN 40 MG/0.4 ML SQ SCH (09:57)
[2022-11-22] MEDS: CEFTRIAXONE 1,000 MG in NA CHLORIDE 0.9% 50 ML IVPB SCH (09:58)
[2022-11-22] MEDS: NIFEDIPINE XL 30 MG TABLET PO SCH (09:58)
[2022-11-22] MEDS: GUAIFENESIN/CODEINE 5ML UCUP PO PRN ×2 (09:58→16:33)
[2022-11-22] MEDS: cloNIDine HCL 0.1 MG TAB PO SCH (09:59)
[2022-11-22] MEDS: carvediloL 25 MG TAB PO SCH ×2 (09:59→21:47)
[2022-11-22] MEDS: SPIRONOLACTONE 25 MG TABLET PO SCH (09:59)
[2022-11-22] MEDS: METHYLPREDNISOLONE 40 MG INJ IV SCH ×2 (09:59→16:33)
[2022-11-22] MEDS: lisinopriL 20 MG TAB PO SCH (10:00)
[2022-11-22] MEDS: CLOPIDOGREL 75 MG TABLET PO SCH (10:00)
--- NOTE | 2022-11-22 19:04 | P.PN ---
Subjective Date of Service: 11/22/22 Chief Complaint: Pneumonia Overnight, she reports that her breathing and cough are much worse. Her wheezing appeared much worse on exam this morning. Will increase the frequency of her methylprednisolone dose. She denies any chest pain or palpitations. Review of Systems 10-point ROS is otherwise unremarkable Respiratory: Cough, Dry, Shortness of Breath, Wheezing Physical Examination - Vital Signs Temperature: 97.2 F Blood Pressure: 140/53 Pulse: 73 Respirations: 17 Pulse Ox (%): 90 Assessment And Plan - Plan - Physical Exam General: Alert, In no apparent distress, Oriented x3 HEENT: Atraumatic, EOMI, Sclerae nonicteric Neck: JVD not distended Respiratory: Diminished, Rhonchi/gurgles, Scattered end-expiratory wheezes throughout all lung jefferson Cardiovascular: No edema, Regular rate/rhythm, No gallops, No rubs, No murmurs Gastrointestinal: Normal bowel sounds, Soft, Non-distended, No tenderness Musculoskeletal: No clubbing Integumentary: No rashes Neurological: Normal speech, Normal affect # Severe Sepsis likely secondary to Community-Acquired Pneumonia - POA She met criteria criteria based on HR > 90 bpm and RR > 20 breaths/min, and the suspected source is pneumonia. - Sepsis order set was initiated - Lactate trend: 2.3 -> 1.5 - Blood cultures drawn before antibiotics were given - Broad spectrum antibiotics started: Ceftriaxone + Azithromycin - In regards to fluids: - 30 mL/kg of IV fluids was not administered given SBP > 90, MAP > 65, lactic acid < 4 - Chest x-ray = "a few areas of subsegmental atelectasis are present within the lungs bilaterally. The upper lobes are clear. Mild cardiomegaly." - Repeat chest x-ray this morning # Suspect Acute Chronic Obstructive Pulmonary Disease Exacerbation - Pulmonary Medicine consulted and spoke with Dr. Orta - recommendations appreciated - Bronchodilators and steroids per Pulm - increased frequency of methylprednisolone - Consulted Respiratory Therapy - Supplemental oxygen to maintain SpO2 > 92% - Assess inhaler technique one improved from COPD exacerbation - Encouraged incentive spirometry # Elevated D-Dimer - D-Dimer = 1123 - CT chest angiogram = "poor opacification of the pulmonary arteries. Evaluation for a pulmonary embolus is nondiagnostic. Mild to moderate predominantly tree-in-bud opacities scattered within the left lung probably an atypical pneumonia. 1.6 centimeter lymph node AP window. Followup CT chest with contrast in 3 months recommended to assess stability" - Ordered bilateral lower extremity Doppler = "no sonographic evidence of left or right lower extremity deep venous thrombosis." - V/Q scan = "low probability of acute pulmonary embolism." # Enlarged Lymph Node (1.6 cm) # Tobacco Use Disorder - Pulmonary Medicine consulted - recommendations appreciated - Discussed the enlarged lymph node with her and explained my concern for a possible malignancy - Advised that she schedule a close follow-up with her PCP and Pulmonology for serial imaging and close evaluation - She verbalized understanding - Tobacco cessation counseling provided - Nicotine patch ordered # Hypertension - Hold home medications due to concern for sepsis # Morbid Obesity - BMI 43.5 kg/m2 - Lifestyle modifications Rajendra Rios M.D.
[2022-11-22] MEDS: ATORVASTATIN 40 MG TAB PO SCH (21:47)
[2022-11-22] MEDS: TERAZOSIN HCL 1 MG CAP PO SCH (21:47)
[2022-11-23] MEDS: ALBUTEROL 2.5 MG/3 ML NEB SOL NEB SCH ×4 (01:00→19:10)
[2022-11-23] MEDS: IPRATROPIUM BROM 0.5MG/2.5ML NEB SCH ×4 (01:00→19:10)
[2022-11-23 01:15] VITALS: BMI 44.0
[2022-11-23] MEDS: METHYLPREDNISOLONE 40 MG INJ IV SCH ×3 (01:43→16:19)
[2022-11-23] MEDS: GUAIFENESIN/CODEINE 5ML UCUP PO PRN (01:51)
[2022-11-23 04:32] LABS: Potassium 4.6 mmol/L (3.5-5.1)
[2022-11-23] MEDS: NICOTINE 21 MG/PAT TD SCH (07:34)
[2022-11-23] MEDS: ASPIRIN 81 MG CHEWABLE TABLET PO SCH (07:34)
[2022-11-23] MEDS: ARFORMOTEROL TARTRATE 15 MCG/2 ML VIAL.NEB NEB SCH ×2 (08:03→19:10)
[2022-11-23] MEDS: cloNIDine HCL 0.1 MG TAB PO SCH (09:00)
[2022-11-23] MEDS ORDERED: Levofloxacin 750mg IV 750 MG/150 ML BAG IV SCH (09:00)
[2022-11-23] MEDS: FLUTICASONE 50MCG NASAL SPRAY NAS SCH (09:00)
[2022-11-23] MEDS: lisinopriL 20 MG TAB PO SCH (09:51)
[2022-11-23] MEDS: CLOPIDOGREL 75 MG TABLET PO SCH (09:51)
[2022-11-23] MEDS: carvediloL 25 MG TAB PO SCH ×2 (09:51→21:31)
[2022-11-23] MEDS: ENOXAPARIN 40 MG/0.4 ML SQ SCH (09:51)
[2022-11-23] MEDS: SPIRONOLACTONE 25 MG TABLET PO SCH (09:52)
[2022-11-23] MEDS: NIFEDIPINE XL 30 MG TABLET PO SCH (09:52)
[2022-11-23] MEDS: ISOSORBIDE MONO SR 60 MG TAB PO SCH (09:53)
[2022-11-23] MEDS: DOXYCYCLINE 100 MG CAP PO SCH ×2 (09:57→21:31)
--- NOTE | 2022-11-23 18:29 | P.PN ---
Subjective Date of Service: 11/23/22 Chief Complaint: Pneumonia Overnight, her wheezing and shortness of breath have seemed to worsen. She states that her symptoms are worse with exertion. Repeat chest x-ray was stable. She denies any chest pain or palpitations. Will obtain repeat COVID-19 test. Review of Systems 10-point ROS is otherwise unremarkable Respiratory: Cough, Shortness of Breath, Wheezing Physical Examination - Vital Signs Temperature: 98.2 F Blood Pressure: 155/75 Pulse: 65 Respirations: 16 Pulse Ox (%): 92 Assessment And Plan - Plan - Physical Exam General: Alert, In no apparent distress, Oriented x3 HEENT: Atraumatic, Sclerae nonicteric Neck: JVD not distended Respiratory: Diminished, Coarse breaths sounds, Rhonchi/gurgles, Scattered end- expiratory wheezes throughout all lung jefferson Cardiovascular: No edema, Regular rate/rhythm, No murmurs Gastrointestinal: Normal bowel sounds, Soft, Non-distended, No tenderness Musculoskeletal: No clubbing Integumentary: No rashes Neurological: Normal speech, Normal affect # Severe Sepsis likely secondary to Community-Acquired vs Atypical Pneumonia - POA She met criteria criteria based on HR > 90 bpm and RR > 20 breaths/min, and the suspected source is pneumonia. - Sepsis order set was initiated - Lactate trend: 2.3 -> 1.5 - Blood cultures drawn before antibiotics were given - Broad spectrum antibiotics started: Ceftriaxone + Azithromycin -> switched antibiotics to Levofloxacin + Doxycycline - In regards to fluids: - 30 mL/kg of IV fluids was not administered given SBP > 90, MAP > 65, lactic acid < 4 - Chest x-ray = "a few areas of subsegmental atelectasis are present within the lungs bilaterally. The upper lobes are clear. Mild cardiomegaly." - Repeat chest x-ray (11/22/2022) = "no significant change mild bilateral interstitial lung opacities previously shown to probably indicate an atypical infection." # Suspect Acute Chronic Obstructive Pulmonary Disease Exacerbation - Pulmonary Medicine consulted and spoke with Dr. Orta - recommendations appreciated - Bronchodilators and steroids per Pulm - increased frequency of methylprednisolone - Consulted Respiratory Therapy - Supplemental oxygen to maintain SpO2 > 92% - Assess inhaler technique one improved from COPD exacerbation - Encouraged incentive spirometry # Elevated D-Dimer - D-Dimer = 1123 - CT chest angiogram = "poor opacification of the pulmonary arteries. Evaluation for a pulmonary embolus is nondiagnostic. Mild to moderate predominantly tree-in-bud opacities scattered within the left lung probably an atypical pneumonia. 1.6 centimeter lymph node AP window. Followup CT chest with contrast in 3 months recommended to assess stability" - Ordered bilateral lower extremity Doppler = "no sonographic evidence of left or right lower extremity deep venous thrombosis." - V/Q scan = "low probability of acute pulmonary embolism." # Enlarged Lymph Node (1.6 cm) # Tobacco Use Disorder - Pulmonary Medicine consulted and spoke with Dr. Orta - recommendations appreciated - Discussed the enlarged lymph node with her and explained my concern for a possible malignancy - Advised that she schedule a close follow-up with her PCP and Pulmonology for serial imaging and close evaluation - She verbalized understanding - Tobacco cessation counseling provided - Nicotine patch ordered # Hypertension - Hold home medications due to concern for sepsis # Morbid Obesity - BMI 43.5 kg/m2 - Lifestyle modifications Rajendra Rios M.D.
[2022-11-23] MEDS: ATORVASTATIN 40 MG TAB PO SCH (21:31)
[2022-11-23] MEDS: TERAZOSIN HCL 1 MG CAP PO SCH (21:31)
[2022-11-24] MEDS: GUAIFENESIN/CODEINE 5ML UCUP PO PRN (00:35)
[2022-11-24] MEDS: METHYLPREDNISOLONE 40 MG INJ IV SCH ×3 (00:37→17:00)
[2022-11-24] MEDS: LABETALOL 20 MG/4ML SYRINGE IV PRN (00:53)
[2022-11-24] MEDS: IPRATROPIUM BROM 0.5MG/2.5ML NEB SCH ×3 (01:15→14:00)
[2022-11-24] MEDS: ALBUTEROL 2.5 MG/3 ML NEB SOL NEB SCH ×3 (01:15→14:00)
[2022-11-24] MEDS: ARFORMOTEROL TARTRATE 15 MCG/2 ML VIAL.NEB NEB SCH ×2 (08:00→18:48)
[2022-11-24] MEDS: ISOSORBIDE MONO SR 60 MG TAB PO SCH (09:33)
[2022-11-24] MEDS: ENOXAPARIN 40 MG/0.4 ML SQ SCH (09:34)
[2022-11-24] MEDS: NIFEDIPINE XL 30 MG TABLET PO SCH (09:34)
[2022-11-24] MEDS: DOXYCYCLINE 100 MG CAP PO SCH (09:35)
[2022-11-24] MEDS: ASPIRIN 81 MG CHEWABLE TABLET PO SCH (09:36)
[2022-11-24] MEDS: CLOPIDOGREL 75 MG TABLET PO SCH (09:37)
[2022-11-24] MEDS: carvediloL 25 MG TAB PO SCH (09:37)
[2022-11-24] MEDS: SPIRONOLACTONE 25 MG TABLET PO SCH (09:37)
[2022-11-24] MEDS: cloNIDine HCL 0.1 MG TAB PO SCH (09:38)
[2022-11-24] MEDS: lisinopriL 20 MG TAB PO SCH (09:38)
[2022-11-24] MEDS: NICOTINE 21 MG/PAT TD SCH (09:39)
[2022-11-24] MEDS: FLUTICASONE 50MCG NASAL SPRAY NAS SCH (09:41)
[2022-11-24 09:51] VITALS: O2SAT 94
[2022-11-24 15:56] VITALS: BP 164/71; TEMP 97.7
== END 2022-11-24 06:40 | disposition home or self-care (01) | DRG 871 ==
LOC: ER 12:36 → ERHOLD 17:56 → 4TH 19:51
PROVIDERS: ADMIT Internal Medicine; ATTEND Hospitalist
DX: A41.9 Sepsis, unspecified organism (principal); J18.9 Pneumonia, unspecified organism; Z68.42 Body mass index [BMI] 45.0-49.9, adult; J44.1 Chronic obstructive pulmonary disease with (acute) exacerbation; J44.0 Chronic obstructive pulmonary disease with (acute) lower respiratory infection; E66.01 Morbid (severe) obesity due to excess calories; I51.7 Cardiomegaly; E87.6 Hypokalemia; I12.9 Hypertensive chronic kidney disease with stage 1 through stage 4 chronic kidney disease, or unspecified chronic kidney disease; N18.2 Chronic kidney disease, stage 2 (mild); F17.200 Nicotine dependence, unspecified, uncomplicated; R79.89 Other specified abnormal findings of blood chemistry; R65.20 Severe sepsis without septic shock; R59.9 Enlarged lymph nodes, unspecified; Z88.6 Allergy status to analgesic agent; Z79.02 Long term (current) use of antithrombotics/antiplatelets; Z79.899 Other long term (current) drug therapy; Z20.822 Contact with and (suspected) exposure to COVID-19
CPT/HCPCS: 0241U; 36415; 71046; 71275; 78582; 80048; 80061; 82550; 83036; 83605; 83735; 83880; 84100; 84439; 84443; 84484; 85025; 85379; 85610; 87040; 93005; 93306; 93970; 94010; 94640; 96365; 96366; 96372; 96375; 99285; A9540; A9558; J0360; J0456; J1100; J1650; J1940; J2920; J3475; J7050; J7605; J7613; J7644; Q9967; U0003

== ENCOUNTER 2025-02-26 17:22 | Inpatient (IN) | payer OTHER ==
[2025-02-26] MEDS ORDERED: ALBUTEROL 2.5 MG/3 ML NEB SOL ONE (17:46)
[2025-02-26] MEDS ORDERED: IPRATROPIUM BROM 0.5MG/2.5ML ONE (17:46)
[2025-02-26 17:47] LABS: Absolute Basophils 0.1 K/uL (0-0.5); Absolute Eosinophils 0.3 K/uL (0-0.5); Absolute Lymphocytes (CBC) 2.9 K/uL (0.7-4.9); Absolute Monocytes 1.1 K/uL (0.1-1.3); Absolute Neutrophil 7.3 K/uL (1.8-8.0); Basophils % 0.4 % (0-1.3); Eosinophils % 2.3 % (0-4.4); Hematocrit 36.1 % (36.0-45.0); Hemoglobin 12.3 g/dL (12.0-15.0); Lymphocytes % 24.7 % (15.3-44.8); MCHC 34.1 g/dL (32.0-36.0); MCV 90.9 fL (80-100); MPV 9.6 fL (7.6-11.3); Monocytes % 9.7 % (3.3-12.3); Neutrophils % 62.9 % (41.7-73.7); Platelets 212 thou/uL (152-406); RBC Red Blood Cell Count 3.97 M/uL (3.86-4.86); Red Cell Distribution Width 14.4 % (12.1-15.2)
[2025-02-26] MEDS ORDERED: MORPHINE 4 MG/ML SYR ONE ×2 (17:47→20:10)
[2025-02-26] MEDS ORDERED: ONDANSETRON 4 MG/2 ML VIAL ONE ×2 (17:47→23:05)
[2025-02-26 17:59] LABS: PT Prothrombin Time 12.4 SECONDS (10-13.0); Protime INR 1.09
[2025-02-26 18:08] LABS: Albumin 2.8 g/dL (3.4-5.0); Albumin/Globulin Ratio 0.7 (1.1-1.8); Bilirubin Direct 0.2 mg/dL (0-0.2); Bilirubin Indirect, Calculated 0.4 mg/dL (0.2-0.8); Bilirubin Total 0.6 mg/dL (0.2-1.0); Globulin 4.2 g/dL (2.3-3.5); Troponin High Sensitivity 14.4 pg/mL (<58.9)
--- NOTE | 2025-02-26 18:15 | RAD REPORT ---
EXAMINATION: ONE VIEW CHEST XR CLINICAL INDICATION: CHEST PAIN TECHNIQUE: Frontal chest projection is submitted. Examination is limited by patient positioning and t echnique. COMPARISON: 11/22/2022 FINDINGS: Linear opacities in both lung bases likely representing scarring. Superimposed infiltrate difficult t o exclude, however. The heart is upper limit normal in size. No displaced fractures identified.
--- NOTE | 2025-02-26 19:30 | RAD REPORT ---
EXAMINATION: CTA CHEST PE CLINICAL INDICATION: CHEST PAIN TECHNIQUE: This examination was performed according to an angiographic protocol with 3D post-processi ng. This involves 3D reconstructions, MIPs, volume rendered images and/or shaded surface rendering. One or more of the following dose reduction techniques were used: Automated exposure control, adjustm ent of the mA and/or kV according to patient size, and/or iterative reconstruction. Unless otherwise specified, incidental findings do not require dedicated imaging follow-up. COMPARISON: No prior exam. FINDINGS: PULMONARY ARTERIES: Normal caliber. No evidence of pulmonary emboli to the subsegmental level. THORACIC AORTA: Normal caliber and configuration. LUNGS: Linear atelectasis seen in both lower lung jefferson. Mild diffuse COPD. PLEURA: No pleural effusion. No pneumothorax. MEDIASTINUM AND LYMPH NODES: No mediastinal mass or fluid collection. Normal size mediastinal, hilar, and axillary lymph nodes. OSSEOUS STRUCTURES AND CHEST WALL: Intact. UPPER ABDOMEN: No significant abnormalities. IMPRESSION: No evidence of pulmonary emboli to the subsegmental level. Prominent diffuse COPD with linear atelectasis in both posterior lung bases.
[2025-02-26] MEDS ORDERED: CLOPIDOGREL 75 MG TABLET ONE (19:49)
[2025-02-26] MEDS ORDERED: METHYLPREDNISOLONE 125 MG INJ ONE (19:49)
--- NOTE | 2025-02-26 20:21 | ER ---
Nurse's Notes [facility] Name: Deepali Gonzales Age: 64 yrs Sex: Female : 1960 Arrival Date: 02/26/2025 Time: 17:22 Bed 14 Private MD: Diagnosis: Chest pain, unspecified Presentation: 02/26 17:26 Chief complaint: EMS states: they were toned out for chest pain. pt states it has been kc6 "on and off all day". Coronavirus screen: At this time, the client does not indicate any symptoms associated with coronavirus-19. Ebola Screen: No symptoms or risks identified at this time. Initial Sepsis Screen: Does the patient meet any 2 criteria? No. Patient's initial sepsis screen is negative. Does the patient have a suspected source of infection? No. Patient's initial sepsis screen is negative. Risk Assessment: Do you want to hurt yourself or someone else? Patient reports no desire to harm self or others. Onset of symptoms was February 26, 2025. Care prior to arrival: Medication(s) given: Nitroglycerin, 0.4 mg SL x 1, Fentanyl 100 mcg IV IV initiated. 20 GA, in the left hand. 17:26 Method Of Arrival: EMS: [facility] 17:26 Acuity: PAUL 2 kc6 Historical: - Allergies: 17:28 Aspirin; kc6 - PMHx: 17:28 kidney disease; Hypertensive disorder; Chronic obstructive lung disease; kc6 - PSHx: 17:28 section; kc6 - Immunization history:: Adult Immunizations up to date. - Infectious Disease History:: Denies. - Social history:: Smoking status: Reported history of juuling and/or vaping. Screenin:29 [facility] ED Fall Risk Assessment (Adult) History of falling in the last 3 months, kc6 including since admission No falls in past 3 months (0 pts) Confusion or Disorientation No (0 pts) Intoxicated or Sedated No (0 pts) Impaired Gait No (0 pts) Mobility Assist Device Used No (0 pt) Altered Elimination No (0 pt) Score/Fall Risk Level 0 - 2 = Low Risk Oriented to surroundings. Abuse screen: Denies threats or abuse. Denies injuries from another. Nutritional screening: No deficits noted. Tuberculosis screening: No symptoms or risk factors identified. Assessment: 17:55 General: Appears in no apparent distress. comfortable, obese, well groomed, well kc6 developed, Behavior is cooperative, crying. Pain: Complains of pain in chest Pain does not radiate. Pain began today Is intermittent. Neuro: Level of Consciousness is awake, alert, obeys commands, Oriented to person, place, time, situation, Appropriate for age. Cardiovascular: Reports chest pain, Heart tones S1 S2 present Capillary refill < 3 seconds Rhythm is sinus bradycardia. Respiratory: Airway is patent Trachea midline Respiratory effort is even, unlabored, Respiratory pattern is regular, symmetrical. GI: No signs and/or symptoms were reported involving the gastrointestinal system. : No signs and/or symptoms were reported regarding the genitourinary system. EENT: No signs and/or symptoms were reported regarding the EENT system. Sclera/Cornea are reddened in right eye and left eye. Derm: No signs and/or symptoms reported regarding the dermatologic system. Skin is intact, is healthy with good turgor, Skin is pink, warm \\T\\ dry. Musculoskeletal: No signs and/or symptoms reported regarding the musculoskeletal system. Circulation, motion, and sensation intact. Range of motion: intact in all extremities. 18:37 Reassessment: Patient appears in no apparent distress at this time. No changes from kc6 previously documented assessment. Patient and/or family updated on plan of care and expected duration. Pain level reassessed. Patient is alert, oriented x 3, equal unlabored respirations, skin warm/dry/pink. Vital Signs: 17:26 BP 152 / 74; Pulse 62; Resp 18 S; Temp 98.8(O); Pulse Ox 93% on R/A; Weight 127.91 kg kc6 (R); Height 5 ft. 6 in. (R); 18:36 BP 158 / 68; Pulse 55; Resp 19 S; Pulse Ox 87% on R/A; kc6 18:36 Pulse Ox 99% on 2 lpm NC; kc6 19:05 BP 160 / 70; Pulse 55; Resp 18; Pulse Ox 100% ; rg5 20:18 BP 154 / 68; Pulse 61; Resp 18; Pulse Ox 100% on 2 lpm NC; Pain 6/10; rg5 17:26 Body Mass Index 45.52 (127.91 kg, 167.64 cm) [facility] 20:18 Pain Scale: Adult rg5 ED Course: 17:25 Patient arrived in ED. kc6 17:26 [facility] 17:26 Shahbaz Lara MD is Attending Physician. cp 17:28 Triage completed. kc6 17:28 Arm band placed on. kc6 17:28 Patient has correct armband on for positive identification. Bed in low position. Call kc6 light in reach. Side rails up X2. property assessment monitor on. Pulse ox on. NIBP on. Door closed. Noise minimized. Lights dimmed. Pillow given. Verbal reassurance given. 17:28 Maintain EMS IV. Dressing intact. Good blood return noted. Site clean \\T\\ dry. Gauge \\T\\ selena 6 site: 20G L HAND. Flushed with 10 mL NS. Patient maintains SpO2 saturation greater than 95% on room air. 17:44 Martha Young RN is Primary Nurse. kc6 17:44 Initial lab(s) drawn, by pa, sent to lab. EKG done, by ED staff, reviewed by Melo Ramirez kc6 ANGELITO. 17:52 XRAY Chest (1 view) In Process Unspecified. EDMS 18:58 Inserted saline lock: 20 gauge in right antecubital area, using aseptic technique. kc6 Flushed with 10 mL NS. 19:[address] stretcher. kc6 19:03 Report given to MAKEDA Bernal. kc6 19:22 CT Chest For PE Angio In Process Unspecified. EDMS 19:22 Tanner Handley MD is Attending Physician. cp 20:21 Nino Husain MD is Hospitalizing Provider. cp 20:30 No provider procedures requiring assistance completed. rg5 20:30 Patient admitted, IV remains in place. intact, No redness/swelling at site. rg5 21:06 Provided Education on: needs for admit. rg5 Administered Medications: 17:54 Drug: morphine IVP or IV 4 mg IVP once over 4 mins Route: IVP; Infused Over: 4 mins; kc6 Site: left hand; 18:36 Follow up: Response: No adverse reaction; Pain is decreased; RASS: Alert and Calm (0) kc6 17:54 Drug: Ondansetron IVP 4 mg IVP once; over 2 minutes Route: IVP; Site: left hand; kc6 18:36 Follow up: Response: No adverse reaction kc6 17:54 Drug: DuoNeb Nebulize (2.5 mg - 0.5 mg) 3 ml Nebulizer once Route: Nebulizer; kc6 18:36 Follow up: Response: No adverse reaction; No change in condition kc6 20:10 Drug: MethylPrednisoLONE IVP 125 mg IVP once Route: IVP; Site: right antecubital; rg5 21:07 Follow up: Response: No adverse reaction; Pain is decreased rg5 20:10 Drug: Clopidogrel PO 75 mg PO once Route: PO; rg5 21:07 Follow up: Response: No adverse reaction rg5 20:15 Drug: NS 0.9% IV 500 ml 500 ml IV at 1 bolus once; to be given as a bolus over 60 rg5 minutes Volume: 500 ml; Route: IV; Rate: 1 bolus; Site: right antecubital; 21:07 Follow up: IV Status: Completed infusion; IV Intake: 500ml rg5 20:17 Drug: morphine IVP or IV 4 mg IVP once over 4 mins Route: IVP; Infused Over: 4 mins; rg5 Site: right antecubital; 21:07 Follow up: Response: No adverse reaction; Pain is decreased rg5 Medication: 21:06 VIS not applicable for this client. rg5 Intake: 21:07 IV: 500ml; Total: 500ml. rg5 Outcome: 20:21 Decision to Hospitalize by Provider. cp 20:30 Admitted to ER Hold. Please see [facility] for further documentation. rg5 20:30 Condition: stable 20:30 Instructed on the need for admit, 02/27 15:09 Patient left the ED. cm10 Signatures: Dispatcher [employer] EDMS Melo Ramirez PA PA cp Martha Young RN RN kc6 Daxa Paulino RN RN cm10 Naveen Guerra RN RN rg5
--- NOTE | 2025-02-26 20:21 | EDPHYS ---
Physician Documentation [facility] Name: Deepali Gonzales Age: 64 yrs Sex: Female : 1960 Arrival Date: 02/26/2025 Time: 17:22 Bed 14 Private MD: ED Physician Tanner Handley HPI: 02/26 17:30 This 64 yrs old Black Female presents to ER via EMS with complaints of Chest Pain. cp 17:30 The patient or guardian reports chest pain that is located primarily in the substernal cp area. 17:30 Onset: today. cp 17:30 The pain radiates to the left arm. cp 17:30 Associated signs and symptoms: Pertinent positives: shortness of breath, Pertinent cp negatives: abdominal pain, cough, lower extremity pain, lower extremity swelling, vomiting. The chest pain is described as waxing and waning. Historical: - Allergies: 17:28 Aspirin; kc6 - PMHx: 17:28 kidney disease; Hypertensive disorder; Chronic obstructive lung disease; kc6 - PSHx: 17:28 section; kc6 - Immunization history:: Adult Immunizations up to date. - Infectious Disease History:: Denies. - Social history:: Smoking status: Reported history of juuling and/or vaping. ROS: 17:34 Constitutional: Negative for body aches, chills, fever, poor PO intake, cp 17:34 Cardiovascular: Positive for chest pain, 17:34 Respiratory: Positive for shortness of breath, on exertion. 17:34 Abdomen/GI: Positive for nausea, Negative for vomiting, diarrhea, constipation, 17:34 Eyes: Negative for injury, pain, redness, and discharge, cp 17:34 ENT: Negative for drainage from ear(s), ear pain, sore throat, difficulty swallowing, difficulty handling secretions, 17:34 Neuro: Negative for altered mental status, dizziness, headache, syncope, weakness, 17:34 All other systems are negative, cp Exam: 17:40 ECG was reviewed by the Attending Physician. cp 17:42 Head/Face: Normocephalic, atraumatic. cp 17:42 Constitutional: The patient appears in no acute distress, alert, awake, non-toxic, well developed, well nourished, obese, 17:42 Eyes: Periorbital structures: appear normal, Conjunctiva: normal, no exudate, no injection, Sclera: no appreciated abnormality, Lids and lashes: appear normal, bilaterally, 17:42 ENT: External ear(s): are unremarkable, Nose: is normal, Mouth: Lips: moist, Oral cp mucosa: moist, Posterior pharynx: Airway: no evidence of obstruction, patent, 17:42 Neck: ROM/movement: is normal, is supple, without pain, no range of motions cp limitations, 17:42 Chest/axilla: Inspection: normal, 17:42 Cardiovascular: Rate: normal, Rhythm: regular, Edema: JVD: is not appreciated, 17:42 Respiratory: the patient does not display signs of respiratory distress, Respirations: labored breathing, that is mild, Breath sounds: decreased breath sounds, are not appreciated, stridor, is not appreciated, wheezing: is not appreciated, 17:42 Abdomen/GI: Inspection: obese Palpation: abdomen is soft and non-tender, in all quadrants, 17:42 Neuro: Orientation: to person, place \T\ time. Mentation: is normal, Motor: moves all fours, no focal deficits, Sensation: no obvious gross deficits, 02/27 00:53 ECG was reviewed by the Attending Physician. Vital Signs: 02/26 17:26 BP 152 / 74; Pulse 62; Resp 18 S; Temp 98.8(O); Pulse Ox 93% on R/A; Weight 127.91 kg kc6 (R); Height 5 ft. 6 in. (R); 18:36 BP 158 / 68; Pulse 55; Resp 19 S; Pulse Ox 87% on R/A; kc6 18:36 Pulse Ox 99% on 2 lpm NC; kc6 19:05 BP 160 / 70; Pulse 55; Resp 18; Pulse Ox 100% ; rg5 20:18 BP 154 / 68; Pulse 61; Resp 18; Pulse Ox 100% on 2 lpm NC; Pain 6/10; rg5 17:26 Body Mass Index 45.52 (127.91 kg, 167.64 cm) kc6 20:18 Pain Scale: Adult rg5 MDM: 17:35 Medical Screening Exam initiated cp 19:00 Differential diagnosis: acute myocardial infarction, acute pericarditis, pericarditis, cp pleurisy, pneumonia, pneumothorax, pulmonary embolus, stable angina, thoracic aortic disection, unstable angina. 20:25 Data reviewed: vital signs, nurses notes, lab test result(s), EKG, radiologic studies, cp plain films, and as a result, I will admit patient. 20:25 The patient was not given aspirin in the Emergency Department. Not indicated due to cp patient's past medical history. Consideration of Admission/Observation Patient was admitted/placed on observation. Management of patient was discussed with the following: Hospitalist: MR Short will admit after discussion. I considered the following discharge prescriptions or medication management in the emergency department Medications were administered in the Emergency Department. See MAR. Independent interpretation of the following test(s) in the Emergency Department EKG: See my EKG interpretation above. Care significantly affected by the following chronic conditions: Hypertension, Chronic Obstructive Pulmonary Disease, Obesity. Counseling: I had a detailed discussion with the patient and/or guardian regarding the historical points, exam findings, and any diagnostic results supporting the discharge/admit diagnosis, the presence of at least one elevated blood pressure reading (>120/80) during this emergency department visit, lab results, radiology results. Response to treatment: the patient's symptoms have markedly improved after treatment. 02/26 17:26 Order name: Basic Metabolic Panel; Complete Time: 18:19 cp 02/26 18:19 Interpretation: Normal except: K 3.0; CL 110; GFR 65. cp 02/26 17:26 Order name: CBC with Diff; Complete Time: 18:19 cp 02/26 18:20 Interpretation: Normal except: WBC 11.60. cp 02/26 17:26 Order name: LFT's; Complete Time: 18:19 cp 02/26 17:26 Order name: Magnesium; Complete Time: 18:19 cp 02/26 17:26 Order name: NT PRO-BNP; Complete Time: 18:19 cp 02/26 17:26 Order name: PT-INR; Complete Time: 18:19 cp 02/26 17:26 Order name: Troponin HS; Complete Time: 18:19 cp 02/26 17:26 Order name: Lipase; Complete Time: 18:19 cp 02/26 21:18 Order name: Troponin HS cp 02/26 22:14 Order name: Basic Metabolic Panel EDMS 02/26 22:14 Order name: CBC with Automated Diff EDMS 02/26 22:14 Order name: Troponin High Sensitivity EDMS 02/26 22:14 Order name: Troponin High Sensitivity EDSD 02/26 22:14 Order name: Troponin High Sensitivity EDMS 02/26 22:14 Order name: Troponin High Sensitivity EDSD 02/26 22:14 Order name: Troponin High Sensitivity EDSD 02/26 17:26 Order name: XRAY Chest (1 view); Complete Time: 18:19 cp 02/26 18:22 Order name: CT Chest For PE Angio; Complete Time: 19:37 cp 02/26 19:38 Interpretation: Report reviewed. 02/26 22:14 Order name: Echo with Doppler EDSD 02/26 22:14 Order name: EKG Electrocardiogram EDSD 02/26 22:14 Order name: EKG Electrocardiogram EDSD 02/26 22:14 Order name: EKG Electrocardiogram [facility] 02/26 17:26 Order name: Cardiac monitoring; Complete Time: 17:37 cp 02/26 17:26 Order name: EKG - Nurse/Tech; Complete Time: 17:37 cp 02/26 17:26 Order name: IV Saline Lock; Complete Time: 17:29 cp 02/26 17:26 Order name: Labs collected and sent; Complete Time: 17:44 cp 02/26 17:26 Order name: O2 Per Protocol; Complete Time: 17:29 02/26 17:26 Order name: O2 Sat Monitoring; Complete Time: 17:29 cp EC:40 Rate is 59 beats/min. Rhythm is regular. HI interval is normal. QRS interval is normal. cp QT interval is normal. T waves are Inverted in leads aVL, aVR. Interpreted by me. Reviewed by me. 02/27 00:53 Rate is 58 beats/min. Rhythm is regular. HI interval is normal. QRS interval is normal. cp QT interval is normal. T waves are Inverted in lead aVL. Interpreted by me. Reviewed by me. Administered Medications: 02/26 17:54 Drug: morphine IVP or IV 4 mg IVP once over 4 mins Route: IVP; Infused Over: 4 mins; kc6 Site: left hand; 18:36 Follow up: Response: No adverse reaction; Pain is decreased; RASS: Alert and Calm (0) [facility] 17:54 Drug: Ondansetron IVP 4 mg IVP once; over 2 minutes Route: IVP; Site: left hand; kc6 18:36 Follow up: Response: No adverse reaction kc6 17:54 Drug: DuoNeb Nebulize (2.5 mg - 0.5 mg) 3 ml Nebulizer once Route: Nebulizer; kc6 18:36 Follow up: Response: No adverse reaction; No change in condition kc6 20:10 Drug: MethylPrednisoLONE IVP 125 mg IVP once Route: IVP; Site: right antecubital; rg5 21:07 Follow up: Response: No adverse reaction; Pain is decreased rg5 20:10 Drug: Clopidogrel PO 75 mg PO once Route: PO; rg5 21:07 Follow up: Response: No adverse reaction rg5 20:15 Drug: NS 0.9% IV 500 ml 500 ml IV at 1 bolus once; to be given as a bolus over 60 rg5 minutes Volume: 500 ml; Route: IV; Rate: 1 bolus; Site: right antecubital; 21:07 Follow up: IV Status: Completed infusion; IV Intake: 500ml rg5 20:17 Drug: morphine IVP or IV 4 mg IVP once over 4 mins Route: IVP; Infused Over: 4 mins; rg5 Site: right antecubital; 21:07 Follow up: Response: No adverse reaction; Pain is decreased rg5 Disposition Summary: 02/26/25 20:21 Hospitalization Ordered Notes: Hospitalization Status: Observation cp Provider: Nino Husain cp Condition: Stable cp Problem: new cp Symptoms: have improved cp Bed/Room Type: Standard cp Location: Telemetry/MedSurg (observation)(02/27/25 13:30) kb3 Room Assignment: 414(02/27/25 13:30) kb3 Diagnosis - Chest pain, unspecified cp Forms: - Medication Reconciliation Form cp - SBAR form cp - Leadership Thank You Letter cp Addendum: 03/01/2025 02:21 Co-signature as Attending Physician, Tanner Handley MD I agree with the assessment s p4 and plan of care. I reviewed the patient's care provided by the Advanced Practice Provider and agree with the diagnosis and treatment plan. Signatures: Dispatcher [employer] EDMS Melo Ramirez PA PA cp Garcia, Cindy, RN RN cg Campbell, Kaitlyn, RN RN kc6 Klaudia Clements RN RN kb3 Tanner Handley MD MD sp4 Guerra, Naveen, RN RN rg5 Corrections: (The following items were deleted from the chart) 02/26 17:27 17:27 BASIC METABOLIC PANEL+C.LAB.BRZ ordered. EDMS EDMS 17: 17:27 CBC+H.LAB.BRZ ordered. EDMS EDMS 17: 17:27 HEPATIC FUNCTION+C.LAB.BRZ ordered. EDMS EDMS 17: 17:27 MAGNESIUM+C.LAB.BRZ ordered. EDMS EDMS 17: 17:27 PROBNP+C.LAB.BRZ ordered. EDMS EDMS 17: 17:27 PROTIME (+INR)+COAG.LAB.BRZ ordered. EDMS EDMS 17: 17:27 Troponin High Sensitivity+C.LAB.BRZ ordered. EDMS EDMS 17: 17:27 LIPASE+C.LAB.BRZ ordered. EDMS EDMS 17:27 17:27 Chest Single View+RAD.RAD.BRZ ordered. EDMS EDMS 21:19 21:19 Troponin High Sensitivity+C.LAB.BRZ ordered. EDMS EDMS 22:20 20:21 Telemetry/MedSurg (observation) cp cg 22:20 20:21 cp cg 02/27 00:53 05 17:42 Constitutional: The patient appears in no acute distress, alert, awake, cp non-toxic, well developed, well nourished, obese, cp 02/27 00:53 02/25 17:42 Head/Face: Normocephalic, atraumatic. cp cp 02/27 00:53 02/25 17:42 Eyes: Periorbital structures: appear normal, Conjunctiva: normal, no cp exudate, no injection, Sclera: no appreciated abnormality, Lids and lashes: appear normal, bilaterally, cp 02/27 13:30 02/26 22:20 [facility] ER HOLD cg kb3 02/27 13:30 02/26 22:20 ERHOLD- cg kb3
[2025-02-26] MEDS ORDERED: NITROGLYCERIN 0.4 MG/TAB SL ONE (21:35)
[2025-02-26] MEDS: NITROGLYCERIN 0.4 MG/TAB SL PRN (22:05)
--- NOTE | 2025-02-26 22:25 | P.HP ---
Certification for Inpatient Patient admitted to: Inpatient With expected LOS: >2 Midnights Patient will require the following post-hospital care: None Practitioner: I am a practitioner with admitting privileges, knowledge of patient current condition, hospital course, and medical plan of care. Services: Services provided to patient in accordance with Admission requirements found in Title 42 Section 412.3 of the Code of Federal Regulations Patient History Date of Service: 02/27/25 Reason for admission: Chest pain, COPD exacerbation. History of Present Illness: Patient is a pleasant 64-year-old female with past medical history of kidney disease, essential hypertension, COPD, who presents to the ER complaining of chest pain with associated shortness of breath started approximately 4:30 in the afternoon today. Patient states the chest pain comes and goes, and states it has been more frequent prior to her arrival to the ER. She states she has had shortness of breath most part of the day, with associated wheezing. She describes her chest pain as sharp and throbbing. Initial chest pain scale was 6/10. During assessment, patient had diminished breath sounds mostly on the right side, and fine coarse crackles. Patient initial troponin 14.4, EKG with no ST abnormalities. When inquired from the patient if she has a battery assembler dry cell, she states yes but cannot remember his name. Patient states her battery assembler dry cell told her that she was going to have chip placement on her chest on 03/01/25, not really clear what patient meant by chip. When inquired from the patient what she meant she could not give me detail explanation. Allergies aspirin Allergy (Mild, Verified 11/19/22 19:30) Itching Home Medications: Atorvastatin Calcium 1 tab PO DAILY 11/19/22 Cholecalciferol (Vitamin D3) [Vitamin D3] 1 tab PO DAILY 11/19/22 Clopidogrel Bisulfate [Plavix*] 1 tab PO DAILY 11/19/22 Isosorbide Mononitrate [Isosorbide Mononitrate ER] 60 mg PO DAILY 11/19/22 NIFEdipine [Nifedipine ER] 30 mg PO DAILY 11/19/22 Nitroglycerin 0.4 mg SL PRN PRN 11/19/22 Spironolactone 25 mg PO DAILY 11/19/22 Terazosin HCl 1 cap PO BEDTIME 11/19/22 Thiamine HCl 100 mg PO DAILY 11/19/22 carvediloL [Coreg] 1 tab PO BID 11/19/22 cloNIDine HCL [Clonidine HCl] 0.1 mg PO DAILY 11/19/22 lisinopriL [Prinivil*] 2 tab PO DAILY 11/19/22 Albuterol Neb [Proventil 0.083% Neb Soln] 2.5 mg NEB [id number] #60 amp 11/24/22 Arformoterol Tartrate [Brovana] 15 mcg NEB BIDRESP #60 vial.neb 11/24/22 Arformoterol Tartrate [Brovana] 15 mcg NEB BIDRESP #60 vial.neb 11/24/22 Doxycycline Hyclate 100 mg PO BID #14 tab 11/24/22 Fluticasone [Flonase 50MCG Nasal [place]*] 1 sprays ARUN DAILY #1 btl 11/24/22 Furosemide [Lasix] 20 mg PO DAILY #30 tab 11/24/22 Guaifen W/Codeine Syrup [ROBITUSSIN A-C Syrup*] 10 ml PO BID PRN #100 ml 11/24/22 Ipratropium Neb [Atrovent*] 0.5 mg NEB [id number] #60 amp 11/24/22 Nebulizer 1 each MC DAILY #1 box 11/24/22 Nebulizer Accessories [Aeroneb Go] 1 each MC DAILY #1 box 11/24/22 Spironolactone [Aldactone] 25 mg PO DAILY #30 tab 11/24/22 predniSONE [Deltasone] 20 mg PO BID #11 tab 11/24/22 - Past Medical/Surgical History Diabetic: No -: Hypertension -: Morbid obesity -: COPD. -: Cardiomyopathy. -: General heart disease. Past Surgical History: Reviewed- Non-Contributory - Social History Smoking Status: Never smoker Alcohol use: No CD- Drugs: No Caffeine use: Yes Place of Residence: Home Review of Systems 10-point ROS is otherwise unremarkable Respiratory: Shortness of Breath, Other (Diminished breath sounds, coarse crackles,) Cardiovascular: Chest Pain Physical Examination - Physical Exam General: Alert, In no apparent distress, Oriented x3, Cooperative HEENT: Atraumatic, Normocephalic, PERRLA, Mucous membr. moist/pink Neck: Supple, 2+ carotid pulse no bruit, No Thyromegaly, No LAD, Without JVD or thyroid abnormality Respiratory: Diminished, Crackles/rales Cardiovascular: No edema, Normal pulses, Regular rate/rhythm, Normal S1 S2, No gallops, No rubs, No murmurs Capillary refill: <2 Seconds Gastrointestinal: Normal bowel sounds, Soft and benign, Non-distended, No ascites, No tenderness, No masses, No rebound, No guarding Musculoskeletal: No clubbing, No swelling, No erythema, No tenderness, No warmth Integumentary: No breakdown, No cyanosis Neurological: Normal gait, Normal strength at 5/5 x4 extr, Normal tone, Sensation intact, Cranial nerves 3-12 intact, Normal reflexes 2+, Normal affect Lymphatics: No axilla or inguinal lymphadenopathy External genitalia: Non-tender - Studies Laboratory Data (last 24 hrs) 02/26/25 02/26/25 02/26/25 Unknown Unknown 17:41 WBC Cancelled Hgb Cancelled Hct Cancelled Plt Count Cancelled PT 12.4 INR 1.09 Sodium Cancelled Potassium Cancelled BUN Cancelled Creatinine Cancelled Glucose Cancelled Magnesium Total Bilirubin AST ALT Alkaline Phosphatase Lipase 02/26/25 02/26/25 17:41 17:41 WBC 11.60 H Hgb 12.3 Hct 36.1 Plt Count 212 PT INR Sodium 142 Potassium 3.0 L BUN 16 Creatinine 0.97 Glucose 103 Magnesium 2.0 Total Bilirubin 0.6 AST 11 L ALT 18 Alkaline Phosphatase 82 Lipase 35 Female Exam - Female Pelvic Cervix: No discharge Assessment and Plan - Plan Patient is a 64-year-old female reports to the ER complaining of chest pain, associated with shortness of breath, with coarse scattered crackles, diminished breath sounds more profound on the right lung. Patient initial troponin 14.4 patient with no peripheral edema at this time. Patient was placed on 2 L of oxygen, baseline room air at home. She describes the chest pain as sharp and throbbing. Denies of any prior history of chest pain. EKG with no ST abnormalities. WBC 11.60 (1)Chest pain. -Initiate chest pain protocol.-Morphine 4 mg IV as needed every 4 hours, nitroglycerin 0.4 mg sublingual as needed. -Telemetry. -Serial troponin order. -Consult battery assembler dry cell. -Order an echo. (2) COPD exacerbation. Patient have bilateral coarse scattered crackles with diminished breath sounds mostly in the right lung. Patient was hypoxic upon arrival in the ER was then placed on 2 L of oxygen. Patient does not use oxygen at home. -Prednisone 40 mg p.o. daily. -Order a dose of azithromycin 500 mg IV x 1 followed with azithromycin 500 mg p.o. daily. Included systemic antibiotic at this time due to patient WBC 11.60, and also recommend per gold standard. -Consult Dr. Orta film and video graphics designer, I did send him a text this morning and he responded. -Albuterol nebulizer 2.5 mg every 6 hours. (3) chronically/hypertension. -Lisinopril 40 mg p.o. daily. (4)Explained entire treatment plan to the patient, solicit questions answered and voiced understanding. Discharge Plan: Home Plan to discharge in: 72 Hours - Advance Directives Does patient have a Living Will: No Does patient have a Durable POA for Healthcare: No - Code Status/Comfort Care Code Status Assessed: Yes Code Status: Full Code
[2025-02-26] MEDS ORDERED: NA CHLORIDE 0.9% 250 ML ONE (22:57)
[2025-02-26] MEDS ORDERED: AZITHROMYCIN 500 MG INJ IVPB ONE (22:57)
[2025-02-26] MEDS: AZITHROMYCIN IV 500 MG in NA CHLORIDE 0.9% 250 ML IVPB ONE (22:59)
[2025-02-27] MEDS: ALBUTEROL 2.5 MG/3 ML NEB SOL NEB SCH (02:05)
[2025-02-27] MEDS ORDERED: ALBUTEROL 2.5 MG/3 ML NEB SOL ONE ×3 (02:14→14:28)
[2025-02-27] MEDS: predniSONE 20 MG TAB PO SCH (08:00)
[2025-02-27] MEDS ORDERED: MORPHINE 4 MG/ML SYR ONE (08:01)
[2025-02-27] MEDS ORDERED: ONDANSETRON 4 MG/2 ML VIAL ONE (08:01)
[2025-02-27] MEDS ORDERED: predniSONE 20 MG TAB ONE (08:02)
[2025-02-27] MEDS ORDERED: AZITHROMYCIN 250 MG TAB ONE (08:02)
[2025-02-27] MEDS: AZITHROMYCIN 250 MG TAB PO SCH (08:19)
[2025-02-27] MEDS: ASPIRIN EC 81 MG TAB PO SCH (08:19)
[2025-02-27] MEDS: MORPHINE 4 MG/ML SYR IV PRN (08:19)
[2025-02-27] MEDS ORDERED: lisinopriL 20 MG TAB ONE (08:47)
[2025-02-27] MEDS ORDERED: ENOXAPARIN 40 MG/0.4 ML SQ ONE (08:47)
[2025-02-27] MEDS: ENOXAPARIN 40 MG/0.4 ML SQ SCH (09:00)
[2025-02-27] MEDS: lisinopriL 20 MG TAB PO SCH (09:00)
--- NOTE | 2025-02-27 11:57 | EKG ---
Test Date: 2025-02-26 Test Time: 17:32:36 [employer] Professional: ARABELLA MEASUREMENT RESULTS: Intervals: Rate: 59 WV: 200 QRSD: 94 QT: 438 QTc: 433 [place]: P: 66 WV: 200 QRS: 26 T: 78 INTERPRETIVE STATEMENTS: Sinus bradycardia Otherwise normal ECG Compared to ECG 11/23/2022 08:03:45 Sinus rhythm no longer present Myocardial infarct finding no longer present T-wave abnormality no longer present Possible ischemia no longer present Electronically Signed On 02-27-25 11:56:21 CDT by Devin Monk
--- NOTE | 2025-02-27 12:33 | ECHO ---
HEIGHT: 5 ft 6 in WEIGHT: 281 lb 15.892 oz DATE OF STUDY: 02/27/[address]: Suhail Short NP 2-DIMENSIONAL: YES M.MODE: YES DOPPLER: YES COLOR FLOW: YES TDS: NO PORTABLE: YES DEFINITY: NO BUBBLE STUDY: NO DIAGNOSIS: CHEST PAIN/ SHORTNESS OF BREATH/ EDEMA CARDIAC HISTORY: CATHERIZATION: NO SURGERY: NO PROSTHETIC VALVE: NO PACEMAKER: NO MEASUREMENTS (cm) DIASTOLIC (NORMALS) SYSTOLIC (NORMALS) IVSd 1.0 (0.6-1.2) LA Diam 4.2 (1.9-4.0) LVEF 60-65% LVIDd 4.7 (3.5-5.7) LVIDs 2.7 (2.0-3.5) %FS 43% LVPWd 1.1 (0.6-1.2) Ao Diam 2.5 (2.0-3.7) 2 DIMENSIONAL ASSESSMENT: RIGHT ATRIUM: NORMAL LEFT ATRIUM: NORMAL RIGHT VENTRICLE: NORMAL LEFT VENTRICLE: NORMAL TRICUSPID VALVE: NORMAL MITRAL VALVE: NORMAL PULMONIC VALVE: NORMAL AORTIC VALVE: NORMAL PERICARDIAL EFFUSION: NONE AORTIC ROOT: NORMAL LEFT VENTRICULAR WALL MOTION: NORMAL. DOPPLER/COLOR FLOW: GRADE I DIASTOLIC DYSFUNCTION. COMMENTS: 1. NORMAL LEFT VENTRICULAR SYSTOLIC FUNCTION, EJECTION FRACTION 60-65%, NORMAL WALL MOTION. 2. GRADE I DIASTOLIC DYSFUNCTION. 3. MILD ELEVATED FILL PRESSURE (RIGHT ATRIAL PRESSURE 5-10mmHg) TECHNOLOGIST: CONRAD CALDERON
--- NOTE | 2025-02-27 13:05 | P.CNS ---
Date of Consult: 02/27/25 Chief Complaint: Chest pain, COPD exacerbation. History of Present Illness: Patient with PMH of Hypertension, heart failure, presented with worsening SOB, STOVALL and BLE swelling, also report chest pain, left sided reproducible on exam, denies palpitations, no syncope. Allergies aspirin Allergy (Mild, Verified 11/19/22 19:30) Itching Home medications list reviewed: Yes Home Medications: Atorvastatin Calcium 1 tab PO DAILY 11/19/22 Cholecalciferol (Vitamin D3) [Vitamin D3] 1 tab PO DAILY 11/19/22 Clopidogrel Bisulfate [Plavix*] 1 tab PO DAILY 11/19/22 Isosorbide Mononitrate [Isosorbide Mononitrate ER] 60 mg PO DAILY 11/19/22 NIFEdipine [Nifedipine ER] 30 mg PO DAILY 11/19/22 Nitroglycerin 0.4 mg SL PRN PRN 11/19/22 Spironolactone 25 mg PO DAILY 11/19/22 Terazosin HCl 1 cap PO BEDTIME 11/19/22 Thiamine HCl 100 mg PO DAILY 11/19/22 carvediloL [Coreg] 1 tab PO BID 11/19/22 cloNIDine HCL [Clonidine HCl] 0.1 mg PO DAILY 11/19/22 lisinopriL [Prinivil*] 2 tab PO DAILY 11/19/22 Albuterol Neb [Proventil 0.083% Neb Soln] 2.5 mg NEB [id number] #60 amp 11/24/22 Arformoterol Tartrate [Brovana] 15 mcg NEB BIDRESP #60 vial.neb 11/24/22 Arformoterol Tartrate [Brovana] 15 mcg NEB BIDRESP #60 vial.neb 11/24/22 Doxycycline Hyclate 100 mg PO BID #14 tab 11/24/22 Fluticasone [Flonase 50MCG Nasal [place]*] 1 sprays ARUN DAILY #1 btl 11/24/22 Furosemide [Lasix] 20 mg PO DAILY #30 tab 11/24/22 Guaifen W/Codeine Syrup [ROBITUSSIN A-C Syrup*] 10 ml PO BID PRN #100 ml 11/24/22 Ipratropium Neb [Atrovent*] 0.5 mg NEB [id number] #60 amp 11/24/22 Nebulizer 1 each MC DAILY #1 box 11/24/22 Nebulizer Accessories [Aeroneb Go] 1 each DAILY #1 box 11/24/22 Spironolactone [Aldactone] 25 mg PO DAILY #30 tab 11/24/22 predniSONE [Deltasone] 20 mg PO BID #11 tab 11/24/22 - Past Medical/Surgical History Diabetic: No -: Hypertension -: Morbid obesity -: COPD. -: Cardiomyopathy. -: General heart disease. - Social History Smoking Status: Current every day smoker Alcohol use: No CD- Drugs: No Caffeine use: Yes Place of Residence: Home Review of Systems 10-point ROS is otherwise unremarkable Physical Examination Temp Pulse Resp BP Pulse Ox 97.8 F 64 21 H 131/51 L 99 02/27/25 12:00 02/27/25 12:00 02/27/25 12:00 02/27/25 12:00 02/27/25 12:00 General: Alert, In no apparent distress HEENT: Atraumatic, PERRLA, Mucous membr. moist/pink, EOMI, Sclerae nonicteric Neck: Supple, 2+ carotid pulse no bruit, No LAD, Without JVD or thyroid abnormality Respiratory: Clear to auscultation bilaterally, Normal air movement Cardiovascular: Regular rate/rhythm, Normal S1 S2 Gastrointestinal: Normal bowel sounds, No tenderness Musculoskeletal: No tenderness Integumentary: No rashes Neurological: Normal gait, Normal speech, Normal tone, Normal affect Lymphatics: No axilla or inguinal lymphadenopathy Laboratory Data (last 24 hrs) 02/26/25 02/26/25 02/26/25 17:41 17:41 17:41 WBC 11.60 H Hgb 12.3 Hct 36.1 Plt Count 212 PT 12.4 INR 1.09 Sodium 142 Potassium 3.0 L BUN 16 Creatinine 0.97 Glucose 103 Magnesium 2.0 Total Bilirubin 0.6 AST 11 L ALT 18 Alkaline Phosphatase 82 Lipase 35 - Problems (1) Acute on chronic diastolic heart failure Current Visit: Yes Status: Acute Plan: recommend starting patient on Lasix 40 mg IV BID. continue to monitor input and output and electrolytes please reconile and resume patient home medications. (2) Chest pain Current Visit: Yes Status: Acute Plan: atypical, reproducible on exam. troponin negative x2, echo shows normal EF and bloom motion. outpatient evaluation. (3) HTN (hypertension) Current Visit: Yes Status: Acute Plan: reconcile patient home medications, continue to monitor.
[2025-02-27 23:11] VITALS: BMI 45.5
--- NOTE | 2025-02-28 13:04 | P.PN ---
Subjective Date of Service: 02/28/25 Chief Complaint: Chest pain, COPD exacerbation. Subjective: No new changes, No C/O voiced, Tolerating diet, Ambulating, Improving Review of Systems 10-point ROS is otherwise unremarkable Physical Examination - Vital Signs Temperature: 97.7 F Blood Pressure: 143/65 Pulse: 62 Respirations: 18 Pulse Ox (%): 99 - Physical Exam General: Alert, In no apparent distress HEENT: Atraumatic, PERRLA, EOMI Neck: Supple, JVD not distended Respiratory: Clear to auscultation bilaterally, Normal air movement Cardiovascular: Regular rate/rhythm, Normal S1 S2 Gastrointestinal: Normal bowel sounds, No tenderness Musculoskeletal: No tenderness Integumentary: No rashes Neurological: Normal speech, Normal tone, Normal affect Lymphatics: No axilla or inguinal lymphadenopathy - Studies Medications List Reviewed: Yes Assessment And Plan - Current Problems (Diagnosis) (1) Acute on chronic diastolic heart failure Current Visit: Yes Status: Acute Plan: Lasix 40 mg IV BID. continue to monitor input and output and electrolytes please reconile and resume patient home medications. (2) Chest pain Current Visit: Yes Status: Acute Plan: atypical, reproducible on exam. troponin negative x2, echo shows normal EF and bloom motion. outpatient evaluation. (3) HTN (hypertension) Current Visit: Yes Status: Acute Plan: reconcile patient home medications, continue to monitor.
[2025-02-28] MEDS: FUROSEMIDE 40 MG/4 ML VIAL IV SCH (16:01)
[2025-02-28] MEDS: DULOXETINE 30 MG CAP PO SCH (21:22)
[2025-02-28] MEDS: ATORVASTATIN 20 MG TAB PO SCH (21:24)
[2025-03-01] MEDS: VALSARTAN 80 MG TAB PO SCH (08:40)
[2025-03-01] MEDS: SPIRONOLACTONE 25 MG TABLET PO SCH (08:41)
[2025-03-01] MEDS: oxyBUTYnin chloride 5 MG TAB PO SCH (08:41)
[2025-03-01] MEDS: carvediloL 25 MG TAB PO SCH (08:41)
[2025-03-01] MEDS: VERAPAMIL SR 240 MG TABLET PO SCH (08:42)
[2025-03-01] MEDS ORDERED: VERAPAMIL HCL 120 MG PO SCH (09:00)
--- NOTE | 2025-03-01 09:08 | P.PN ---
Subjective Date of Service: 02/27/25 Patient clinically doing well. Patient denies any new complaints. Clinical symptoms are not improving. Awaiting cardiology recommendations. Echo pending. Patient remains with some chest discomfort. EKG and troponins are negative. Review of Systems 10-point ROS is otherwise unremarkable Physical Examination - Vital Signs Temperature: 97.6 F Blood Pressure: 145/64 Pulse: 61 Respirations: 18 Pulse Ox (%): 100 - Physical Exam General: Alert, In no apparent distress, Oriented x3 Respiratory: Clear to auscultation bilaterally, Normal air movement, Expiratory wheezes Cardiovascular: Regular rate/rhythm, Normal S1 S2, No murmurs Gastrointestinal: Normal bowel sounds, Soft and benign, Non-distended, No tenderness Musculoskeletal: No clubbing, No swelling, No tenderness Integumentary: No rashes Neurological: Sensation intact, Cranial nerves 3-12 intact - Studies Medications List Reviewed: Yes Assessment & Plan - Problems (Diagnosis) (1) COPD with acute exacerbation Current Visit: Yes Status: Acute (2) Acute on chronic diastolic heart failure Current Visit: Yes Status: Acute (3) Chest pain Current Visit: Yes Status: Acute (4) HTN (hypertension) Current Visit: Yes Status: Acute - Plan Plan: 1. Chest pain rule out acute coronary syndrome; serial troponins and EKG are negative. Awaiting cardiology recommendation. Echocardiogram pending. Continue with serial troponins and monitor on telemetry. 2. Acute COPD exacerbation; continue with nebs, steroids, antibiotics. Tapering dose of steroids at discharge. Outpatient pulmonary follow-up. Pulmonary has been recommended in house. 3. Deconditioning and weakness; will workup cardiac status and then get her physical therapy evaluation. 4. Hypokalemia; continue with supplement 5. History of hypertension; resume and hypertensives. Monitor vital signs closely 6. Morbid obesity; BMI greater than 40; outpatient follow-up with bariatric and PCP. May benefit from GLP-1 agonist. Discharge Plan: Home Plan to discharge in: Greater than 2 days - Advance Directives Does patient have a Living Will: No Does patient have a Durable POA for Healthcare: No - Code Status/Comfort Care Code Status: Full Code Critical Care: No Time Spent Managing PTS Care (In Minutes): 35
--- NOTE | 2025-03-01 09:09 | P.PN ---
Date of Service: 02/28/25 Subjective Patient clinical symptoms are stable. Patient's echocardiogram with diastolic dysfunction. Patient's a little weak but overall doing well. Respiratory status is stable. Arranging for discharge planning. Possible discharge home in a.m. with physical therapy. Physical Examination - Vital Signs Reviewed - Physical Exam General: Alert, In no apparent distress, Oriented x3 Respiratory: Clear to auscultation bilaterally, Normal air movement, Expiratory wheezes Cardiovascular: Regular rate/rhythm, Normal S1 S2, No murmurs Gastrointestinal: Normal bowel sounds, Soft and benign, Non-distended, No tenderness Musculoskeletal: No clubbing, No swelling, No tenderness Integumentary: No rashes Neurological: No focal deficits - Studies Medications List Reviewed: Yes Assessment & Plan - Problems (Diagnosis) (1) COPD with acute exacerbation Current Visit: Yes Status: Acute (2) Acute on chronic diastolic heart failure Current Visit: Yes Status: Acute (3) Chest pain Current Visit: Yes Status: Acute (4) HTN (hypertension) Current Visit: Yes Status: Acute - Plan Continue with plan of care as mentioned below: 1. Chest pain rule out acute coronary syndrome; serial troponins and EKG are negative. Awaiting cardiology recommendation. Echocardiogram pending. Co ntinue with serial troponins and monitor on telemetry. 2. Acute COPD exacerbation; continue with nebs, steroids, antibiotics. Tapering dose of steroids at discharge. Outpatient pulmonary follow-up. Pulmonary has been recommended in house. 3. Deconditioning and weakness; will workup cardiac status and then get her physical therapy evaluation. 4. Hypokalemia; continue with supplement 5. History of hypertension; resume and hypertensives. Monitor vital signs closely 6. Morbid obesity; BMI greater than 40; outpatient follow-up with bariatric and PCP. May benefit from GLP-1 agonist. Discharge Plan: Home Plan to discharge in: Greater than 2 days - Advance Directives Does patient have a Living Will: No Does patient have a Durable POA for Healthcare: No - Code Status/Comfort Care Code Status: Full Code Critical Care: No Time Spent Managing PTS Care (In Minutes): 35
[2025-03-01] MEDS: methocarbamoL 500 MG TAB PO ONE (10:51)
[2025-03-01] MEDS: dexAMETHasone 4 MG/ML VIAL IV ONE (10:51)
[2025-03-01 10:55] LABS: Absolute Eosinophils 0.2 K/uL (0-0.5); Absolute Lymphocytes (CBC) 3.1 K/uL (0.7-4.9); Absolute Neutrophil 9.4 K/uL (1.8-8.0); Basophils % 0.3 % (0-1.3); Eosinophils % 1.6 % (0-4.4); Hematocrit 37.7 % (36.0-45.0); Hemoglobin 12.8 g/dL (12.0-15.0); Lymphocytes % 22.3 % (15.3-44.8); MCH 31.4 pg (27.0-35.0); MCHC 33.9 g/dL (32.0-36.0); MCV 92.7 fL (80-100); MPV 10.1 fL (7.6-11.3); Monocytes % 7.5 % (3.3-12.3); Neutrophils % 68.3 % (41.7-73.7); Platelets 225 thou/uL (152-406); RBC Red Blood Cell Count 4.07 M/uL (3.86-4.86); Red Cell Distribution Width 14.5 % (12.1-15.2)
--- NOTE | 2025-03-01 10:55 | P.PN ---
Subjective Date of Service: 03/01/25 Chief Complaint: Chest pain, COPD exacerbation. Subjective: No new changes, No C/O voiced, Tolerating diet, Ambulating, Improving Review of Systems 10-point ROS is otherwise unremarkable Physical Examination - Vital Signs Temperature: 97.6 F Blood Pressure: 145/64 Pulse: 61 Respirations: 18 Pulse Ox (%): 100 - Physical Exam General: Alert, In no apparent distress HEENT: Atraumatic, PERRLA, EOMI Neck: Supple, JVD not distended Respiratory: Clear to auscultation bilaterally, Normal air movement Cardiovascular: Regular rate/rhythm, Normal S1 S2 Gastrointestinal: Normal bowel sounds, No tenderness Musculoskeletal: No tenderness Integumentary: No rashes Neurological: Normal speech, Normal tone, Normal affect Lymphatics: No axilla or inguinal lymphadenopathy - Studies Medications List Reviewed: Yes Assessment And Plan - Current Problems (Diagnosis) (1) Acute on chronic diastolic heart failure Current Visit: Yes Status: Acute Plan: Lasix 40 mg IV BID. continue to monitor input and output and electrolytes Coreg 25 mg po BID Stop Diovan increase lisinopril to 40 mg daily continue Aldactone 25 mg daily may add Farxiga 10 mg po daily at discharge. (2) Chest pain Current Visit: Yes Status: Acute Plan: atypical, reproducible on exam. troponin negative x2, echo shows normal EF and bloom motion. outpatient evaluation. (3) HTN (hypertension) Current Visit: Yes Status: Acute Plan: continue current medications, continue to monitor.
[2025-03-01 11:19] LABS: Anion Gap 6.5 mEq/L (5.0-15.0); Bilirubin Total 0.5 mg/dL (0.2-1.0); Potassium 3.5 mEq/L (3.5-5.1)
[2025-03-01 11:20] LABS: Albumin/Globulin Ratio 0.7 (1.1-1.8); Globulin 4.3 g/dL (2.3-3.5); Magnesium 2.2; Protein, Total 7.3 g/dL (6.4-8.2)
--- NOTE | 2025-03-01 12:27 | EKG ---
Test Date: 2025-02-27 Test Time: 00:47:30 Child Care Director: BEULAH MEASUREMENT RESULTS: Intervals: Rate: 58 NM: 200 QRSD: 84 QT: 476 QTc: 467 [place]: P: 68 NM: 200 QRS: 41 T: 61 INTERPRETIVE STATEMENTS: Sinus bradycardia Otherwise normal ECG Compared to ECG 02/26/2025 17:32:36 No significant changes Electronically Signed On 03-01-25 12:25:05 CDT by Devin Monk
[2025-03-01 16:20] VITALS: BP 114/58
[2025-03-01 16:29] VITALS: TEMP 97.6
[2025-03-01] MEDS: NA CHLORIDE 0.9% 250 ML IV ONE (16:53)
[2025-03-01 19:55] VITALS: O2SAT 97
== END 2025-03-01 20:52 | disposition home or self-care (01) | DRG 291 ==
LOC: ER 17:22 → ERHOLD 21:58 → 4TH 02-27 14:16
PROVIDERS: ADMIT Hospitalist; ATTEND Hospitalist
DX: I13.0 Hypertensive heart and chronic kidney disease with heart failure and stage 1 through stage 4 chronic kidney disease, or unspecified chronic kidney disease (principal); I50.33 Acute on chronic diastolic (congestive) heart failure; J44.1 Chronic obstructive pulmonary disease with (acute) exacerbation; Z68.42 Body mass index [BMI] 45.0-49.9, adult; E66.01 Morbid (severe) obesity due to excess calories; N18.9 Chronic kidney disease, unspecified; E87.6 Hypokalemia; F17.200 Nicotine dependence, unspecified, uncomplicated; Z88.6 Allergy status to analgesic agent; Z79.52 Long term (current) use of systemic steroids; Z79.02 Long term (current) use of antithrombotics/antiplatelets; Z79.899 Other long term (current) drug therapy
CPT/HCPCS: 36415; 71045; 71275; 80048; 80053; 80076; 82947; 83690; 83735; 83880; 84484; 85025; 85610; 93005; 93306; 94760; 97116; 97161; 97530; 99285; J1100; J1650; J1938; J2405; J2919; J7050; J7512; J7613; J7644; Q9967